=== PATIENT | male | born 1955 | race African-American/Black ===

== ENCOUNTER 2021-12-29 11:15 | Outpatient (REF) | payer MEDICARE, SELFPAY ==
--- NOTE | ~2021-12-29 | US_ITS ---
EXAMINATION: US COMPLETE ABDOMEN WITH LIVER ELASTOGRAPHY CLINICAL INFORMATION: Viral hepatitis without hepatic coma COMPARISON: None. TECHNIQUE: Real-time imaging of the abdominal viscera. Noninvasive ultrasound liver fibrosis assessment is performed using Carlota ElastPQ point quantification shear wave elastography (2D-SWE) with a C5-2 MHz transducer. Multiple elastography samples are obtained. FINDINGS: PANCREAS: The visualized pancreatic head and body are normal in appearance. The tail of the pancreas is obscured from visualization by the overlying bowel gas. ABDOMINAL AORTA: The proximal, middle, and distal aortic segments are normal in caliber. INFERIOR VENA CAVA: Visualized portions are normal. LIVER: Normal. The liver demonstrates normal size, contour and echogenicity. No focal lesion or intrahepatic biliary duct dilatation. The right lobe measures 13.1 cm in length. The left lobe measures 7.44 cm in length. Portal flow is hepatopedal. Shear wave liver elastography median stiffness is 1.53 m/s (reference: normal median stiffness is 1.3 m/s or less). IQR/median stiffness to assess sampling precision is 0.04 (reference: good quality data set is IQR/median stiffness of 0.15 or less). GALLBLADDER: Gallbladder wall thickness is 0.2 cm. There are echogenic calcifications in the gallbladder wall. The gallbladder is physiologically distended without evidence of stones, sludge, polyps, wall thickening or pericholecystic fluid. COMMON BILE DUCT: Normal in caliber measuring 0.3 cm in diameter. RIGHT KIDNEY: Normal. No hydronephrosis. No renal calculi or focal parenchymal lesions. The kidney measures 11.1 cm in maximum dimension. LEFT KIDNEY: There is an anechoic cyst midpole measuring 0.8 x 0.7 x 0.8 cm. No hydronephrosis. No renal calculi or focal parenchymal lesions. The kidney measures 10.9 cm in maximum dimension. SPLEEN: Normal. The spleen measures 10.5 cm in maximum dimension. FREE FLUID: None. US/US abdomen comp w elastography IMPRESSION: 1. Simple cyst left kidney midpole. 2. Nonspecific echogenic calcification along the gallbladder wall. 3. Liver elastography: Median liver stiffness measures 1.3 m/s suggestive of high probability normal REFERENCE: Society of Radiologists in Ultrasound Liver Stiffness Thresholds (2019): LIVER STIFFNESS THRESHOLDS: *Liver Stiffness equal or less than 1.3 m/s: High probability of being normal. *Liver Stiffness less than 1.7 m/s: In the absence of other known clinical signs, rules out compensated advanced chronic liver disease. *Liver Stiffness 1.7-2.1 m/s: Suggestive of compensated advanced chronic liver disease but need further test for confirmation. *Liver Stiffness over 2.1 m/s: Rules in compensated advanced chronic liver disease. *Liver Stiffness over 2.4 m/s: Suggestive of clinically significant portal hypertension. QUALITY OF DATA SET: *IQR/Median value equal or less than 0.15 implies a quality data set. *IQR/Median value over 0.15 implies a poor quality data set. SIGNIFICANT CHANGE FROM PRIOR EXAM: Significant change if liver stiffness measurement is 10% or greater from prior exam. OTHER CONSIDERATIONS: The stage of liver fibrosis may be overestimated in the setting of acute hepatitis, liver inflammation, elevated liver function tests, hepatic vascular congestion, obstructive cholestasis, non-fasting state, and infiltrative diseases such as amyloidosis and lymphoma. In some patients with NAFLD, the liver stiffness thresholds for compensated advanced chronic liver disease may be lower. In causes other than viral hepatitis and NAFLD, liver stiffness thresholds are not well established.
== END 2021-12-29 11:16 | disposition home or self-care (01) ==
LOC: HO.US 11:15
PROVIDERS: Visit Provider Internal Medicine
DX: B19.20 Unspecified viral hepatitis C without hepatic coma (principal)
CPT/HCPCS: 76705; 76981

== ENCOUNTER → 2022-08-16 11:14 | Outpatient (BNV) | payer MEDICARE, SELFPAY | PROVIDERS: PCP Internal Medicine; Visit Provider Internal Medicine | DX: D64.9 Anemia, unspecified (principal) | CPT/HCPCS: 99203; 99214; G2211 ==

== ENCOUNTER 2022-11-03 09:59 | Outpatient (REF) | payer MEDICARE, SELFPAY | END 2022-11-03 10:00 | disposition home or self-care (01) | LOC: HO.MDS 09:59 | PROVIDERS: Visit Provider Internal Medicine | DX: D50.9 Iron deficiency anemia, unspecified (principal) | CPT/HCPCS: 96365 ==

== ENCOUNTER 2022-11-10 09:53 | Outpatient (REF) | payer MEDICARE, SELFPAY | END 2022-11-10 09:54 | disposition home or self-care (01) | LOC: HO.MDS 09:53 | PROVIDERS: Visit Provider Internal Medicine | DX: D50.9 Iron deficiency anemia, unspecified (principal) | CPT/HCPCS: 96365; J1756 ==

== ENCOUNTER 2022-11-17 09:51 | Outpatient (REF) | payer MEDICARE, SELFPAY | END 2022-11-17 09:52 | disposition home or self-care (01) | LOC: HO.MDS 09:51 | PROVIDERS: Visit Provider Internal Medicine | DX: D50.9 Iron deficiency anemia, unspecified (principal) | CPT/HCPCS: 96365; J1756 ==

== ENCOUNTER 2022-11-24 09:49 | Outpatient (REF) | payer MEDICARE, SELFPAY | END 2022-11-24 09:50 | disposition home or self-care (01) | LOC: HO.MDS 09:49 | PROVIDERS: Visit Provider Internal Medicine | DX: D50.9 Iron deficiency anemia, unspecified (principal) | CPT/HCPCS: 96365; J1756 ==

== ENCOUNTER 2022-12-01 09:48 | Outpatient (REF) | payer MEDICARE, SELFPAY | END 2022-12-01 09:49 | disposition home or self-care (01) | LOC: HO.MDS 09:48 | PROVIDERS: Visit Provider Internal Medicine | DX: D50.9 Iron deficiency anemia, unspecified (principal) | CPT/HCPCS: 96365; J1756 ==

== ENCOUNTER 2024-06-14 07:56 | Outpatient (REF) | payer MEDICARE, SELFPAY ==
[2024-06-14 08:35] LABS: MANUAL DIFF FLAG NO
[2024-06-14 09:50] LABS: Basophils Percent Auto 0.5 % (0-2); Eosinophils Absolute Auto 0.2 X10*3/uL (0.0-0.4); Eosinophils Percent Auto 2.4 % (0-4); Hematocrit 29.3 % (42.0-52.0); Hemoglobin 9.4 g/dl (14.0-18.0); Imm Gran Abs Auto 0.03 X10*3/uL (0.00-0.03); Imm Gran Pct Auto 0.4 % (0.0-0.4); Lymphocytes Absolute Auto 1.7 X10*3/uL (1.2-4.9); Lymphocytes Percent Auto 20.4 % (20-40); Mean Corpuscular HGB Conc 32.1 g/dl (31.0-36.0); Mean Corpuscular Hemoglobin 30.1 pg (27.0-33.0); Mean Corpuscular Volume 93.9 fL (80.0-98.0); Mean Platelet Volume 10.7 fL (9.4-12.4); Monocytes Absolute Auto 0.7 X10*3/uL (0.1-1.2); Monocytes Percent Auto 8.6 % (2-11); Neutrophils Absolute Auto 5.7 x10*3/uL (2.0-8.3); Neutrophils Percent Auto 67.7 % (45-73); Platelet Count 386 X10*3/uL (160-400); Red Blood Count 3.12 X10*6/uL (4.60-5.80); Red Cell Distribution Width 15.7 % (11.0-16.0); White Blood Count 8.4 X10*3/uL (4.8-10.8)
[2024-06-14 10:19] LABS: Alanine Aminotransferase 11 U/L (0-40); Albumin Level 4.1 g/dL (3.5-5.0); Alkaline Phosphatase 109 U/L (39-117); Anion Gap 15 (12-20); Aspartate Amino Transferase 23 U/L (5-37); Bilirubin Total 0.2 mg/dL (0.0-1.0); Blood Urea Nitrogen 21 mg/dL (9-16); Calcium 9.4 mg/dL (8.4-10.2); Carbon Dioxide 25 mmol/L (22-29); Chloride 110 mmol/L (96-108); Cholesterol 85 mg/dL (<200); Estimated Glomerular Filt Rate 54; Glucose Random 102 mg/dL (60-115); HDL Cholesterol 23 mg/dL (>40); Iron 35 mcg/dL (45-160); LDL Cholesterol Calculated 53 mg/dL (<100); Percent Iron Saturation 13 % (15-50); Potassium 4.5 mmol/L (3.3-5.1); Sodium 145 mmol/L (135-145); Total Iron Binding Capacity 260 mcg/dL (228-428); Total Protein 6.8 g/dL (6.5-8.0); Triglycerides 45 mg/dL (<150); Unsaturated Iron Binding 225 ug/dL
[2024-06-14 10:33] LABS: PSA,Total (Free>4and<10) 5.46 ng/mL (0.00-4.00)
[2024-06-14 10:39] LABS: TSH reflex Free T4 1.81 uIU/mL (0.32-4.0)
[2024-06-14 10:45] LABS: Folate 7.9 ng/mL (> or = 4.0); Vitamin B12 257 pg/mL (200-900)
[2024-06-16 12:03] LABS: Alpha Fetoprotein 2.8 ng/mL (<6.1)
[2024-06-16 12:09] LABS: Free Prostate Spec Ag 1.8 ng/mL; Percent Free Prostate Spec Ag 32 % (calc) (>25); Prostate Specific Ag Total 5.6 ng/mL (< OR = 4.0)
== END 2024-06-14 07:57 | disposition home or self-care (01) ==
LOC: HO.LAB 07:56
PROVIDERS: PCP Internal Medicine; Visit Provider Internal Medicine
DX: E11.9 Type 2 diabetes mellitus without complications (principal); Z12.5 Encounter for screening for malignant neoplasm of prostate; B18.2 Chronic viral hepatitis C
CPT/HCPCS: 36415; 80053; 80061; 82105; 82607; 82746; 83540; 84153; 84154; 84443; 85025

== ENCOUNTER 2024-08-15 10:42 | Outpatient (AMB) | payer MEDICARE, SELFPAY ==
--- NOTE | 2024-08-15 07:52 | A.OFFVIS_ITS ---
Intake Visit Reasons: Current Smoker Allergies No Known Allergies Allergy (Verified 06/02/24 15:37) HPI HPI Current Smoker: Details: Initial visit for this 69yo smoker with a 27PYH. Patient started smoking at age 15 for 54 years at 1/2ppd. . Reports history marijuana use in past. Denies second hand smoke exposure. Denies exposure to chemicals or substances like asbestos. . Denies known family history of lung cancer. Denies personal history of cancers. Denies chest CT in last year. History of Right lung mass biopsy - inflammation- Dr. Gonzalez, [facility] - 11/15/2001. . Denies recent travel outside the [place]. Denies recent respiratory illness or recent hospitalization for respiratory issues. Reports testing positive for COVID. Admits receiving COVID Vaccine. . Denies fever, chills, new/worsening cough, hemoptysis, hoarseness or dysphagia. Denies significant chest pain, significant dyspnea or unintentional weight loss. Patient Lung Cancer Screening Questionnaire reviewed with patient by provider. . Shared Decision Making Completed. Patient meets criteria. Discussed in detail with patient, the risk vs benefit of LDCT screening. Patient consents to proceed with scan. Discussed smoking cessation. [facility] Medical History (Updated 08/12/24 @ 15:09 by Corie Carmona PA-C) Hepatitis C, chronic Hypertension Hyperlipidemia Diabetes GERD (gastroesophageal reflux disease) Anemia Nicotine dependence, cigarettes, uncomplicated Surgical History (Updated 08/15/24 @ 07:53 by Corie Carmona PA-C) History of bronchoscopy Social History (Updated 08/15/24 @ 10:51 by Corie Carmona PA-C) Household Members: Family Housing: Other Patient Tobacco Use Status: Current everyday Tobacco user Tobacco use type: Cigarette Years Smoked: (onset 15yo, 1/2ppd x 54yrs, 27pyh) service: No Current occupational status: employed and retired Assessment & Plan Assessment & Plan (1) Nicotine dependence, cigarettes, uncomplicated: Code(s): F17.210 - Nicotine dependence, cigarettes, uncomplicated Category: Medical Plan: - SDM visit completed today in office. - Patient meets criteria for LDCT for lung cancer screening purposes and is asymptomatic. - Smoking cessation counseling offered. Patients can always call [phone]. - Will arrange for a LDCT scan of the chest for screening purposes at [facility]. - Risks, benefits, and alternatives were discussed in detail and the patient agrees to proceed. - Risks discussed include but are not limited to: radiation exposure, anxiety during testing and while awaiting results, false negatives, false positives and possibility of additional intervention such as further imaging or surgical procedures for benign disease. - Benefits are obviously detection of lung cancer at an early stage which can lead to improved outcomes. - Discussed the importance of screening program compliance with adherence to yearly LDCT scan as scheduled - or sooner interval scans for personalized screening regimen. - Discussed follow up plan. Our office will send a letter discussing results and if needed set up phone call and office visit based on CT findings. - Patient educated on results categorization and the management decisions for suspicious findings potentially found on the screening LDCT scan. Any patient with a Lung RADS score of 3 or 4 will be reviewed by a multidisciplinary team at [facility] to form a plan of action in regards to scan findings. - If further work up is warranted for a suspicious lung finding this will be followed by the Lung Cancer Screening program in conjunction with the Thoracic Surgery Department at [facility]. - A copy of the office note and LDCT will be sent to the patient's PCP - as well as documentation on any associated further plans of care. - Incidental findings on LDCT are the PCP's responsibility. These findings are indicated with an S finding on the LDCT Assessment. A note discussing the findings will be sent to the PCP who is then responsible for further management. - All questions answered.? Plan The USPTF recommends men age 65-75 who have ever smoked have a one-time Abdominal Ultrasound screening for AAA. Reports having abd US at [facility] that is being followed. Reports scheduled for abdominal CT next week. He asked about upcoming appointment on 08/18 which is for Urology questioning if he needed to keep that appointment. Explained it is to further work up elevated PSA which can be elevate in a number of conditions including prostate cancer. He is encourage to follow up on this. Coding Level of Care Code Lung Cancer Screening [id number] Diagnoses Nicotine dependence, cigarettes, uncomplicated F17.210
== END 2024-08-15 13:14 | disposition home or self-care (01) ==
PROVIDERS: PCP Internal Medicine; Visit Provider Physician Assistant Medical
DX: F17.210 Nicotine dependence, cigarettes, uncomplicated (principal)
CPT/HCPCS: G0296

== ENCOUNTER 2024-08-15 11:03 | Outpatient (REF) | payer MEDICARE, SELFPAY ==
--- NOTE | ~2024-08-15 | CT_ITS ---
CLINICAL HISTORY: F17.210 - Nicotine dependence, cigarettes, uncomplicated Examination CT lung cancer screening History Screening examination performed for pulmonary nodules Technique Axial CT images of the chest using low-dose technique. Effective radiation dose total: 64.5 mGy-cm, CTDIvol 1.66 mGy. Referring provider counseled the patient on shared decision-making for LDCT screening. Additional counseling was provided on smoking cessation. Comparison: None Findings: Lungs: There is a cyst in the superior segment of the right lower lobe measuring 3.5 x 2.3 x 2.8 cm. There is irregular/nodular wall thickening of the cyst measuring up to 6 mm (series 7, image 79). Scarring at the lung apices with nodularity which measures up to 1.3 cm (series 4, image 10 4 bilateral nodules with a more nodular appearance on the left best seen on series 7, image 59). Paraseptal emphysema measures up to 3.3 cm. Mand-pk-eyeaoyrz centrilobular emphysema. Mild bronchial wall thickening Coronary artery calcifications: Moderate Other: None Limited upper abdomen: Atrophic spleen with a lobular contour Impression: LungRADS 4A - Suspicious: Follow-up low dose Chest CT recommended in 3 months or consider PET/CT. ##L4A# Category 1: Normal; continue annual screening Category 2: Benign appearance or behavior, continue annual screening Category 3: Probably benign, [address] recommended Category 4A: Suspicious, [address] recommended; may consider PET/CT Category 4B: Suspicious, Additional diagnostics and/or tissue sampling recommended Category 4X: Suspicious, Additional diagnostics and/or tissue sampling recommended Category 0: Recalls (incomplete screen due to Incomplete coverage, Noise, Respiratory motion, Expiration, Obscured by acute abnormality) This document has been electronically signed by: Yolis Eid MD on 08/15/2024 17:22:37
== END 2024-08-15 11:04 | disposition home or self-care (01) ==
LOC: HO.CT 11:03
PROVIDERS: PCP Internal Medicine; Visit Provider Physician Assistant Medical
DX: Z12.2 Encounter for screening for malignant neoplasm of respiratory organs (principal); F17.210 Nicotine dependence, cigarettes, uncomplicated
CPT/HCPCS: 71271; G0296

== ENCOUNTER → 2024-08-15 11:05 | Outpatient (BNV) | payer MEDICARE, SELFPAY | PROVIDERS: PCP Internal Medicine; Visit Provider Radiology Diagnostic Radiology | DX: F17.210 Nicotine dependence, cigarettes, uncomplicated (principal) | CPT/HCPCS: 71271 ==

== ENCOUNTER 2024-12-15 10:51 | Outpatient (REF) | payer MEDICARE, SELFPAY ==
--- OUTSIDE RECORDS SUMMARY | 2024-12-15 11:36 | XMS_ITS | Encounter Summary ---
Author Organization [employer] Address [address] [place] [address] Care Team Providers Care Propulsion Machinery Service Engineer Name Role Phone Enrike Coronado MD Primary Care Prov ider Reason for Visit * Reason Onset Date Comments CT scan order 09/29/2024 Encounter Details Date Type Department Care Team (Late st Contact Info) Description 09/29/2024 Telephone [facility] [address] [place] [address] Enrike Coronado MD [address] [place] [address] CT scan order Social History Tobacco Use Types Packs/Day Years Used Date Smoking Tobacco: Every Day Cigarettes Depression Answer Date Recorded Patient Health Questionnaire-9 Score 2 05/29/2024 Patient Health Questionnaire-9 Score 2 05/29/2024 Last PHQ-9: Questionnaire Data Not on file 1 Housing Stability Answer Date Recorded What is your housing situation today? I have artis connolly 05/22/[address] you li ve. Do you have problems with any of the following? None of the above 05/22/2024 Food Insecurity Answer Date Recorded Within the past 12 months, y ou worried that your food would run out before you got money to buy more: Never True 05/22/2024 Within the past 12 months,th e food you bought just didn't last and you didn't have enough money to get more: Never True Transportation Answer Date Recorded In the past 12 months, has l ack of transportation kept you from medical appts, meetings, work or from getting things needed for daily living? No 05/22/2024 Utilities Answer Date Recorded In the past 12 months, has t he electric, gas, oil or water company threatened to shut off services in your home? No 05/22/2024 Depression Answer Date Recorded Patient Health Questionnaire-2 Score 0 05/29/2024 Internet Access Answer Date Recorded Internet Access Q1 Yes 05/22/2024 Internet Access Q2 Not on file 05/22/2024 Sex and Gender Information Value Date Recorded Sex Assigned at Male 06/05/2022 10:36 AM EDT Legal Sex Male 10:36 AM EDT Gender Identity Male 06/05/2022 10:36 AM EDT Sexual Orientation Choose not to disclose 2021 10:36 AM EDT documented as of this encounter Miscellaneous Notes * Telephone Encounter - Benedicto Jones - 09/30/2024 11:28 AM EST TC from [facility] with [facility] reports receiving order for Ct scan of abdomen with/ and w out contrast . Requesting a new order to state Ct of Abdomen with contrast ( only ) * Telephone Encounter - Katya Pradhan - 09/29/2024 11:43 AM EST Tc from [facility] with [facility] informing referral that was sent over for imaging has to say CT abdomen w contrast only documented in this encounter Plan of Treatment Upcoming Encounters Date Type Department Care Team (Late st Contact Info) Description 01/08/2025 10:30 AM EDT Telemedicine [facility] [address] [place] [address] Enrike Coronado MD [address] [place] [address] documented as of this encounter Visit Diagnoses Not on filedocumented in this encounter Additional Health Concerns Assessment Noted Time PHQ-9 Depression Total Score: 2 05/29/20 11:39 AM EDT documented as of this encounter Care Teams Propulsion Machinery Service Engineer Relationship Specialty Start Date End Date Enrike Coronado MD [address] [place] [id number] PCP - General Internal Medicine 09/23/19 documented as of this encounter
--- OUTSIDE RECORDS SUMMARY | 2024-12-15 11:36 | XMS_ITS | Clinical Summary ---
Author Organization [facility] Address [address] [place] [address] Phone Care Team Providers Care Relocation Director Name Role Phone Enrike Coronado Primary Care Provide r Social History Tobacco Use Types Packs/Day Years Used Date Smoking Tobacco: Every Day Cigarettes Smokeless Tobacco: Never Sex and Gender Information Value Date Recorded Sex Assigned at Not on file Legal Sex Male 7:48 PM EST Gender Identity Not on file Sexual Orientation Not on file Obstetrics History Plan of Treatment Health Maintenance Due Date Last Done Comments Diabetes: Annual Foot Exam 1964 Diabetes: Annual Retina Eye Exam 1964 DTaP,Tdap,and Td Vaccines (1 - Tdap) 1973 Pneumococcal Vaccine: 50+ Years (1 of 2 - PCV) 1973 Zoster Vaccines (1 of 2) 2004 RSV Immunization Adult Patients (1 - Risk 60-74 years 1-dose series) 2014 Abdominal Aortic Aneurysm (AAA) Screen 07/16/2022 Colorectal Cancer Screening: Colonoscopy 07/16/2022 Falls Risk Assessment 07/16/2022 Hepatitis C Screening 07/16/2022 Medicare Annual Wellness Visit 07/16/2022 Social Influencers of Health Screening 07/16/2022 Hepatitis A Vaccines (2 of 2 - Risk 2-dose series) 03/14/2023 09/14/2022 Hepatitis B Vaccines (3 of 3 - Risk 3-dose series) 03/14/2023 10/12/2022, 09/14/2022 COVID-19 Vaccine (2 - 2023-2 5 season) 2024 08/26/2021 Diabetes: Annual Urine Albumin-Creatinine Ratio (uACR) 07/23/2024 Diabetes: Blood Sugar Contro l Test (HGBA1C) 11/28/2024 05/30/2024 Influenza Vaccine (Season Ended) 2025 Depression Screening 05/29/2025 05/29/2024 Diabetes: Annual GFR (Glomerular Filtration Rate) 06/14/2025 06/14/2024 Hypertension/CHF/CAD Annual BMP Blood Test 06/14/2025 06/14/2024 Cholesterol Screening (Lipid Panel) 06/14/2029 06/14/2024 HIB Vaccines Aged Out No longer eligi ble based on patient's age to complete this topic HPV Vaccines Aged Out No longer eligi ble based on patient's age to complete this topic IPV Vaccines Aged Out No longer eligi ble based on patient's age to complete this topic MMR Vaccines Aged Out No longer eligi ble based on patient's age to complete this topic Meningococcal ACWY Vaccine Aged Out N o longer eligible based on patient's age to complete this topic Meningococcal B Vaccine Aged Out No l onger eligible based on patient's age to complete this topic RSV Immunization Patients Under 20 months Aged Out No longer eligible b ased on patient's age to complete this topic Varicella Vaccines Aged Out No longer eligible based on patient's age to complete this topic Insurance [place] [id number] Care Teams Relocation Director Relationship Specialty Start Date End Date Enrike Coronado [address] [place], [place] PCP - General Internal Medicine 11/07/19
--- OUTSIDE RECORDS SUMMARY | 2024-12-15 11:36 | XMS_ITS | Encounter Summary ---
Author Organization [employer] Address [address] [place] [address] Care Team Providers Care Flower Buncher Or Picker Name Role Phone Enrike Coronado MD Primary Care Prov ider Encounter Details Date Type Department Care Team (Late st Contact Info) Description 12/09/2024 Orders Only [facility] [address] [place] [address] Enrike Coronado MD [address] [place] [address] Social History Tobacco Use Types Packs/Day Years [...] AM EDT documented as of this encounter Plan of Treatment Upcoming Encounters Date Type Department Care Team (Late st Contact Info) Description 01/08/2025 10:30 AM EDT Telemedicine [facility] [address] [place] [address] Enrike Coronado MD [address] [place] [address] documented as of this encounter Visit Diagnoses Not on filedocumented in this encounter Additional Health Concerns Assessment Noted Time PHQ-9 Depression Total Score: 2 05/29/20 24 11:39 AM EDT documented as of this encounter Care Teams Flower Buncher Or Picker Relationship Specialty Start Date End Date Enrike Coronado MD [address] [place] [address] PCP - General Internal Medicine 09/23/19 documented as of this encounter
--- OUTSIDE RECORDS SUMMARY | 2024-12-15 11:36 | XMS_ITS | Encounter Summary ---
Author Organization [employer] Address [address] [place] [address] Care Team Providers Care Tapper Shank Name Role Phone Enrike Coronado MD Primary Care Prov ider Encounter Details Date Type Department Care Team ([facility] Contact Info) Description 07/26/2022 Orders Only [facility] [address] [place] [address] Enrike Coronado MD [address] [place] [address] Iron deficiency (Primary Dx) Social History Tobacco Use Types Packs/Day Years Used Date Smoking Tobacco: Never Assessed Sex and Gender Information Value Date Recorded Sex Assigned at Male 06/05/2022 10:36 AM EDT Legal Sex Male 10:36 AM EDT Gender Identity Male 06/05/2022 10:36 AM EDT Sexual Orientation Choose not to disclose 2021 10:36 AM EDT documented as of this encounter Plan of Treatment Upcoming Encounters Date Type Department Care Team (Late Contact Info) Description 01/08/2025 10:30 AM EDT Telemedicine [facility] [address] [place] [address] Enrike Coronado MD [address] [place] [address] documented as of this encounter Visit Diagnoses Diagnosis Iron deficiency- Primary Disorders of iron metabolism documented in this encounter Care Teams Tapper Shank Relationship Specialty Start Date End Date Enrike Coronado MD [address] [place] [id number] PCP - General Internal Medicine 09/23/19 documented as of this encounter
--- OUTSIDE RECORDS SUMMARY | 2024-12-15 11:36 | XMS_ITS | Encounter Summary ---
Author Organization [employer] Address [address] [place] [address] Care Team Providers Care Wastewater Project Engineer Name Role Phone Enrike Coronado MD Primary Care Prov ider Reason for Visit * Reason Onset Date Comments Request For Order(s) 08/27/2024 Encounter Details Date Type Department Care Team ([facility] st Contact Info) Description 08/27/2024 Telephone [facility] [address] [place] [address] Enrike Coronado MD [address] [place] [address] Request For Order(s) Social History Tobacco Use Types Packs/Day Years [...] encounter Miscellaneous Notes * Telephone Encounter - Katya Pradhan - 08/27/2024 8:25 AM EST Tc from Chris with [facility] requesting a new order for - CT Abdomen with and without contrastas is a liver protocol - Chris states past order was with and is requested with and without.Pt will be going in about to hours from now 8:27am [facility] -Chris- [phone] documented in this encounter Plan of Treatment Upcoming Encounters Date Type Department Care Team (Late st Contact Info) Description 01/08/2025 10:30 AM EDT Telemedicine [facility] [address] [place] [address] Enrike Coronado MD [address] [place] [address] documented as of this encounter Visit Diagnoses Not on filedocumented in this encounter Additional Health Concerns Assessment Noted Time PHQ-9 Depression Total Score: 2 05/29/20 24 11:39 AM EDT documented as of this encounter Care Teams Wastewater Project Engineer Relationship Specialty Start Date End Date Enrike Coronado MD [address] [place] [address] PCP - General Internal Medicine 09/23/19 documented as of this encounter
--- OUTSIDE RECORDS SUMMARY | 2024-12-15 11:36 | XMS_ITS | Clinical Summary ---
Author Organization [employer] Address [address] [facility] 7t [place] [address] Care Team Providers Care Assignment Desk Assistant Name Role Phone Enrike Coronado MD Primary Care Prov ider Allergies No known active allergies Medications Aspirin Low Dose 81 MG EC tablet Take 81 mg by mouth in the morning. 05/16/2022 Active Blood Glucose Monitoring Suppl (SHADOTouch Verio Reflect) w/Device kit USE TO CHECK BLOOD SUGAR 3 TIMES A DAY DIRECTED. 09/20/2021 Active Blood Pressure Monitoring (Omron 3 Series BP Monitor) device Check blood pressure on arm as directed EVERY DAY 11/23/2021 Active Glecaprevir-Pib rentasvir (Mavyret) 100-40 MG tablet take 3 tablet by oral route every day for 8 weeks 02/15/2022 Active OneTouch Verio test strip USE TO CHECK BLOOD SUGAR THREE TIMES DAILY DIRECTED. 11/22/2021 Active Lancets (SHADOTouch Delica Plus [id number]) misc USE TO CHECK BLOOD SUGAR 3 TIMES A DAY DIRECTED. 11/22/2021 Active omeprazole (PriLOSEC) [address] capsule Take 20 mg by mouth in the morning. 05/29/2022 Active pneumococcal conjugate (Prevnar 13) vaccine Inject 0.5 mL into the shoulder, thigh, or buttocks. 10/18/2021 Active zoster vaccine-recombi nant adjuvanted (Shingrix) 50 MCG/0.5ML vaccine Inject 0.5 mL into the shoulder, thigh, or buttocks. 10/18/2021 Active ferrous gluconate (Fergon) 324 (38 Fe) MG tablet Take 1 tablet (324 mg) by mouth with breakfast. 90 tablet 3 10/08/2024 10/09/19 26 Active atorvastatin (Lipitor) 40 MG tablet Take 1 tablet (40 mg) by mouth Once per day. 90 tablet 3 10/08/2024 Active lisinopril-hydr oCHLOROthiazide 20-12.5 MG tablet Take 1 tablet by mouth Once per day. 90 tablet 3 10/08/2024 10/09/19 26 Active Active Problems Problem Noted Date Diagnosed Date Elevated PSA 10/08/2024 Assessment & Plan (10/08/2024 12:25 PM EST): No LUTS, he missed appointment with urology, encouraged to rescheduled, phone number was provided Lung nodule 10/08/2024 Assessment & Plan (10/08/2024 12:25 PM EST): Followed by pneumology, he will undergo a new ct scan in 3 months Liver lesion 10/08/2024 Assessment & Plan (12/08/2024 11:15 AM EDT): Ct scan ordered pending appointment, new labs sent Assessment & Plan (10/08/2024 12:27 PM EST): 3 liver lesion uncharacterized seen on ct scan, will repeat study in 3 months 12/03/24. Screening for lung cancer 05/29/2024 Assessment & Plan (05/29/2024 11:20 PM EDT): >30 pack year hx, will refer for lung cancer screening Prostate cancer screening 05/29/2024 Assessment & Plan (05/29/2024 11:20 PM EDT): Will order PSA Primary hypertension 12/04/2022 Assessment & Plan (12/08/2024 11:14 AM EDT): Controlled, continue low sodium intake, keep bp log, target <140/90 Assessment & Plan (10/08/2024 12:24 PM EST): Controlled, continue low sodium diet and exercise as tolerated, keep bp log, target <140/90 Assessment & Plan (05/29/2024 11:17 PM EDT): Controlled with current therapy, keep bp log, target <140/90, new labs will be ordered for guidance, follow up in 3 months Assessment & Plan (12/04/2022 11:02 AM EDT): Controlled, reinforced low sodium diet and exercise as tolerated, will place new labs orders, follow up in 3 months Iron deficiency anemia 12/04/2022 Assessment & Plan (12/08/2024 11:15 AM EDT): New labs will be ordered he remains asymptomatic Assessment & Plan (12/04/2022 11:03 AM EDT): On oral iron replacement, patient also underwent 5 iron infssions, will order new labs, denied rectal bleeding, Hepatitis C without hepatic coma 09/07/2022 Assessment & Plan (05/29/2024 11:18 PM EDT): Ultrasound will be ordered Hepatitis C virus infection cured after antiviral drug therapy 09/07/2022 Acute cough 07/27/2022 Assessment & Plan (07/27/2022 12:49 PM EST): Patient symptoms started 2 days ago, he tested positive for covid. Current symptoms are chills, cough and congestion. Paxlovid offered risk v benefits were discussed, told to maintain well hydrated and in case of worsening symptoms to visit er. COVID 07/27/2022 Congestion of nasal sinus 07/27/2022 Resolved Problems Problem Noted Date Diagnosed Date Resolved Date Type 2 diabetes mellitus wit hout complication, without long-term current use of insulin 05/29/2024 10/08/2024 Assessment & Plan (05/29/2024 11:18 PM EDT): Has been off treatment, today A1c was <6, continue diet and exercise as tolerated Encounters Date Type Department Care Team Description 12/09/2024 Orders Only [facility] MEDICINE [address] [place] [address] Enrike Coronado MD 12/08/2024 10:30 AM EDT Telemedicine [facility] MED & PEDS [address] [place] [address] Enrike Coronado MD Iron deficiency anemia secondary to inadequate dietary iron intake (Primary Dx); Primary hypertension; Liver lesion 12/08/2024 Travel 11/06/2024 Telephone [facility] [address] [place] [address] ABDOMEN ORDER 10/14/2024 Telephone [facility] Information Management [address] [place] [address] [id number] ORDER 10/08/2024 11:15 AM EST Telemedicine [facility] MED & PEDS [address] [place] [address] Enrike Coronado MD Primary hypertension (Primary Dx); Dietary counseling; Exercise counseling; Type 2 diabetes mellitus without complication, without long-term current use of insulin (CMS/HCC); Chronic hepatitis C without hepatic coma (CMS/HCC); Elevated PSA; Lung nodule; Liver lesion 10/08/2024 Travel 10/07/2024 Telephone [facility] MED & PEDS [address] [place] [address] Enrike Coronado MD chart prep 09/29/2024 Telephone [facility] MEDICINE [address] [place] [address] [phone] scan order from Last 3 Months Immunizations Name Administration Dates Next Due Hep A, Adult 09/14/2022 03/14/2023 Hep B, adult 10/12/2022 HepB-CpG 09/14/2022 10/12/2022 Social History Tobacco Use Types Packs/Day Years Used Date Smoking Tobacco: Every Day Cigarettes Tobacco Cessation:Ready to Q uit: Not Asked; Counseling Given: Not Answered Depression Answer Date Recorded Patient Health Questionnaire-9 [...] not to disclose 2021 10:36 AM EDT Last Filed Vital Signs Vital Sign Reading Time Taken Comments Blood Pressure 130/52 12/08/2024 10:33 AM EDT Pulse 74 12/08/2024 10:33 AM EDT Temperature 36.7 ??C (98 ??F) 05/29/2024 11:02 AM EDT Respiratory Rate 22 05/29/2024 11:02 AM EDT Oxygen Saturation 98% 05/29/2024 11:02 AM EDT Inhaled Oxygen Concentration - - Weight 84.9 kg (187 lb 2 oz) 05/29/2024 11:02 AM EDT Height 180.3 cm (5' 11 ) 05/29/2024 11:02 AM EDT Body Mass Index 26.1 05/29/2024 11:02 AM EDT Plan of Treatment Upcoming Encounters Date Type Department Care Team (Late st Contact Info) Description 01/08/2025 10:30 AM EDT Telemedicine [facility] MED & PEDS [address] [place] [address] Enrike Coronado MD [address] [place] [address] Health Maintenance Due Date Last Done Comments CT Colonography 1954 Colonoscopy 1954 Colorectal Cancer Screening 1954 FIT DNA/Cologuard 1954 FIT 1954 FOBT 1954 Sigmoidoscopy 1954 Diabetes: Foot Exam 1964 Eye Exam 1964 DTaP/Tdap/Td Vaccines (1 - Tdap) 1973 Pneumococcal Vaccine: 50+ Years (1 of 2 - PCV) 1973 Zoster Vaccines (1 of 2) 2004 RSV Patients and Patients Aged 60 years or older (1 - Risk 60-74 years 1-dose series) 2014 Diabetes: Urine Protein Screening 11/23/2022 11/23/2021 Hepatitis A Vaccines (2 of 2 - Risk 2-dose series) 03/14/2023 09/14/2022 Hepatitis B Vaccines (3 of 3 - Risk 3-dose series) 03/14/2023 10/12/2022, 09/14/2022, 09/14/2022 COVID-19 Vaccine ( season) 2024 08/26/2021, 10/12/2020, 09/23/2020 Influenza Vaccine (#1) 2024 Diabetes: Hemoglobin A1C 11/28/202405/30/2 024, 04/12/2022, 11/23/2021, Additional history exists Alcohol/Substance Use Screening 05/29/2025 05/29/2024 Depression Screening 05/29/2025 05/29/2024, 05/29/20 SDOH Screening 05/29/2025 05/29/2024 Tobacco Screening 05/29/2025 05/29/2024 Lipid Panel 06/14/2025 06/14/2024, 0508/2022, 07/03/2022, Additional history exists HIB Vaccines Aged Out No longer eligi ble based on patient's age to complete this topic HPV Vaccines Aged Out No longer eligi ble based on patient's age to complete this topic IPV Vaccines Aged Out No longer eligi ble based on patient's age to complete this topic Meningococcal Vaccine Aged Out No braeden wei eligible based on patient's age to complete this topic RSV under 20 months Aged Out No longe r eligible based on patient's age to complete this topic Rotavirus Vaccines Aged Out No longer eligible based on patient's age to complete this topic Procedures Procedure Name Priority Date/Time Associated Diagnosis Comments LIPID PANEL, STANDARD Routine 06/14/2024 8:33 AM EST Type 2 diabetes mellitus without complication, without long-term current use of insulin ([facility]) POCT GLYCATED HEMOGLOBIN, TOTAL Routine 05/30/2024 10:41 AM EDT Type 2 diabetes mellitus without complication, without long-term current use of insulin ([facility]) ALBUMIN, RANDOM URINE W/CREATININE Routine 11/23/2021 10:00 AM EDT from Last 3 Months or Most Recently Relevant to Health Maintenance Results * (ABNORMAL) Lipid Panel, Standard (06/14/2024 8:33 AM EST) Triglycerides 45 <150 mg/dL [facility] Comment:Desirable Triglyceri de: less than 150 mg/dLBorderline High Triglyceride 150-199 mg/dLHigh Triglyceride: 200-499 mg/dLVery High Triglyceride: greater than or equal to 5OO mg/dL Cholesterol 85 <200 mg/dL [facility] Comment:Desirable Cholestero l: less than 200 mg/dLBorderline High Cholesterol: 200-239 mg/dLHigh Cholesterol: greater than 239 mg/dL LDL Cholesterol Calculated 53 <100 mg/dL [facility] Comment:Desirable LDL: less than 100 mg/dLNear Optimal/Above Optimal LDL: 110- 129 mg/dLBorderline High LDL: 130-159 mg/dLHigh LDL: 160-189 mg/dLVery High LDL: greater than or equal to 190 mg/dL HDL Cholesterol 23(L) >40 mg/dL [facility] Comment:Desirable HDL: great er than 40 mg/dL Note: This HDL assay may give artificially low results in patients with liver disease. Blood Venous blood specimen / Unknown 06/14/2024 8:33 AM EST 06/14/2024 8:33 AM EST Enrike Peguero MD LAB BLOOD ORDERABL ES Final Result [facility] [address] [place] [phone] * POCT HGB A1C (05/30/2024 10:41 AM EDT) Hemoglobin A1C 5.1 4.0 - 6.0 % QC Media Lot # [id number] Lot# Expiration Date Blood 05/30/2024 10:4 1 AM EDT Enrike Peguero MD POINT OF CARE TEST ENTER/EDIT ORDERABLES Final Result * ALBUMIN, RANDOM URINE W/CREATININE (11/23/2021 10:00 AM EDT) Microalbumin Urine 0.3 See Note: mg/dL [facility] Comment: Reference Range: ?? Reference Range Not established Microalb/Creat Ratio 3 <30 mcg/mg creat [facility] Comment: ?? The ADA defines abnormalities in albumin excretion as follows: ?? Albuminuria Category ?Result (mcg/mg creatinine) ?? Normal to Mildly increased ?? <30 Moderately increased ? 30-299 ?? Severely increased ? > OR = 300 ?? The ADA recommends that at least two of three specimens collected within a 3-6 month period be abnormal before considering a patient to be within a diagnostic category. Creatinine, Urine 112 20 - 320 mg/dL [facility] 11/23/2021 10:0 0 AM EDT Enrike Peguero MD LAB URINE ORDERABL ES Final Result [facility] [address] from Last 3 Months or Most Recently Relevant to Health Maintenance Insurance [id number] MEDICARE REPLACEMENT Care Teams Assignment Desk Assistant Relationship Specialty Start Date End Date Enrike Coronado MD [address] [place] [phone] PCP - General Internal Medicine 09/23/19
--- OUTSIDE RECORDS SUMMARY | 2024-12-15 11:36 | XMS_ITS | Encounter Summary ---
Author Organization [employer] Address [address] [facility] [address] [place] [address] Care Team Providers Care Rock Climbing Instructor Name Role Phone Enrike Coronado MD Primary Care Prov ider Reason for Visit * Reason Onset Date Comments Med Refill 11/21/2022 Encounter Details Date Type Department Care Team (Late st Contact Info) Description 11/21/2022 Telephone [facility] MED & PEDS [address] [place] [address] nErike Coronado MD [address] [place] [address] Med Refill Social History Tobacco Use Types Packs/Day Years Used Date Smoking Tobacco: Every Day Cigarettes Sex and Gender Information Value Date Recorded Sex Assigned at Male 06/05/2022 10:36 AM EDT Legal Sex Male 10:36 AM EDT Gender Identity Male 06/05/2022 10:36 AM EDT Sexual Orientation Choose not to disclose 2021 10:36 AM EDT documented as of this encounter Miscellaneous Notes * Telephone Encounter - Susy Epperson - 11/21/2022 11:25 AM EDT Tc from pt requesting med refill on lisinopril-hydroCHLOROthiazide 20-12.5 MG tablet Please sent to [id number] - [place], [place] - [address] documented in this encounter Plan of Treatment Upcoming Encounters Date Type Department Care Team (Late st Contact Info) Description 01/08/2025 10:30 AM EDT Telemedicine [facility] MED & PEDS [address] [place] [address] Enrike Coronado MD [address] [place] [address] documented as of this encounter Visit Diagnoses Not on filedocumented in this encounter Care Teams Rock Climbing Instructor Relationship Specialty Start Date End Date Enrike Coronado MD [address] [place] [address] PCP - General Internal Medicine 09/23/19 documented as of this encounter
[2024-12-15 14:18] LABS: MANUAL DIFF FLAG NO
[2024-12-15 14:28] LABS: Basophils Percent Auto 0.5 % (0-2); Eosinophils Absolute Auto 0.2 X10*3/uL (0.0-0.4); Eosinophils Percent Auto 2.4 % (0-4); Hematocrit 30.1 % (42.0-52.0); Hemoglobin 9.5 g/dl (14.0-18.0); Imm Gran Abs Auto 0.02 X10*3/uL (0.00-0.03); Imm Gran Pct Auto 0.2 % (0.0-0.4); Lymphocytes Percent Auto 24.5 % (20-40); Mean Corpuscular HGB Conc 31.6 g/dl (31.0-36.0); Mean Corpuscular Hemoglobin 28.6 pg (27.0-33.0); Mean Corpuscular Volume 90.7 fL (80.0-98.0); Mean Platelet Volume 11.3 fL (9.4-12.4); Monocytes Absolute Auto 0.8 X10*3/uL (0.1-1.2); Monocytes Percent Auto 10.5 % (2-11); Neutrophils Percent Auto 61.9 % (45-73); Platelet Count 352 X10*3/uL (160-400); Red Blood Count 3.32 X10*6/uL (4.60-5.80); Red Cell Distribution Width 16.6 % (11.0-16.0)
[2024-12-15 14:40] LABS: Estimated Average Glucose 94 mg/dL; Hemoglobin A1C 77.0983 umol/L; Hemoglobin A1c % 4.9 % (<6.0); Total Hemoglobin (HGBA1C) 2550.0436 umol/L
[2024-12-15 14:50] LABS: Alanine Aminotransferase 9 U/L (0-40); Albumin Level 3.9 g/dL (3.5-5.0); Anion Gap 11 (12-20); Aspartate Amino Transferase 28 U/L (5-37); Bilirubin Total 0.3 mg/dL (0.0-1.0); Blood Urea Nitrogen 17 mg/dL (9-16); Carbon Dioxide 26 mmol/L (22-29); Chloride 105 mmol/L (96-108); Cholesterol 85 mg/dL (<200); Estimated Glomerular Filt Rate > 60; Glucose Random 75 mg/dL (60-115); HDL Cholesterol 21 mg/dL (>40); Iron 21 mcg/dL (45-160); LDL Cholesterol Calculated 51 mg/dL (<100); Percent Iron Saturation 8 % (15-50); Potassium 4.1 mmol/L (3.3-5.1); Sodium 138 mmol/L (135-145); Total Iron Binding Capacity 273 mcg/dL (228-428); Total Protein 6.6 g/dL (6.5-8.0); Triglycerides 66 mg/dL (<150); Unsaturated Iron Binding 252 ug/dL
[2024-12-15 15:17] LABS: Alkaline Phosphatase 104 U/L (39-117)
== END 2024-12-15 10:52 | disposition home or self-care (01) ==
LOC: HO.CHCLDS 10:51
PROVIDERS: Visit Provider Internal Medicine
DX: D50.8 Other iron deficiency anemias (principal); I10 Essential (primary) hypertension; Z13.1 Encounter for screening for diabetes mellitus
CPT/HCPCS: 36415; 80053; 80061; 83036; 83540; 85025

== ENCOUNTER 2025-01-29 09:06 | Outpatient (REF) | payer MEDICARE, SELFPAY ==
--- NOTE | ~2025-01-29 | CT_ITS ---
CLINICAL HISTORY: F17.210 - Nicotine dependence, cigarettes, uncomplicated --- Additional Notes or Special Instructions: RLL cyst measuring 3.5 x 2.[address] lung cancer screening (LDCT) Comparison: None provided Technique: Axial CT images of the chest using low-dose technique. Referring provider counseled the patient on shared decision-making for LDCT screening. Additional counseling was provided on smoking cessation. Effective radiation dose total: DLP 56.8 mGycm, CTDIvol 1.5 mGy. Findings: Lung: No evidence of pneumonia or edema. Mild apical predominant emphysema. Nodular biapical pulmonary opacities are present as before, largest of which is in the left medial apex, currently measuring 17 mm on image 21 (previously measuring 13 mm ). No change in the cystic focus within the superior segment right lower lobe with mural nodularity. Coronary artery calcifications: Moderate Limited upper abdomen: Unremarkable Other: None Impression: 1. Coronary artery disease. 2. LungRADS 4B - Suspicious: PET/CT, and/or tissue sampling recommended depending on the probability of malignancy and comorbidities. ##L4B## Category 1: Normal; continue annual screening Category 2: Benign appearance or behavior, continue annual screening Category 3: Probably benign, [address] recommended Category 4A: Suspicious, [address] recommended; may consider PET/CT Category 4B: Suspicious, Additional diagnostics and/or tissue sampling recommended Category 4X: Suspicious, Additional diagnostics and/or tissue sampling recommended Category 0: Recalls (incomplete screen due to Incomplete coverage, Noise, Respiratory motion, Expiration, Obscured by acute abnormality) This document has been electronically signed by: Pam Meza MD on 01/29/2025 17:48:23
--- OUTSIDE RECORDS SUMMARY | 2025-01-29 09:51 | XMS_ITS | Encounter Summary ---
Author Organization [employer] Address [address] [facility] [address] [place] [address] Care Team Providers Care Bronc Breaker Name Role Phone Enrike Coronado MD Primary Care Prov ider Reason for Visit * Reason Onset Date Comments CT scan order 09/29/2024 Encounter Details Date Type Department Care Team (Late st Contact Info) Description 09/29/2024 Telephone [facility] MEDICINE [address] [place] [address] Enrike Coronado MD [address] [place] [phone] scan order Social History Tobacco Use [...] - 09/29/2024 11:43 AM EST Tc from [facility] with [facility] informing referral that was sent over for imaging has to say CT abdomen w contrast only documented in this encounter Plan of Treatment Not on file documented as of this encounter Visit Diagnoses Not on filedocumented in this encounter Additional Health Concerns Assessment Noted Time PHQ-9 Depression Total Score: 2 05/29/20 24 11:39 AM EDT documented as of this encounter Care Teams Bronc Breaker Relationship Specialty Start Date End Date Enrike Coronado MD [address] [place] [address] PCP - General Internal Medicine 09/23/19 documented as of this encounter
== END 2025-01-29 09:07 | disposition home or self-care (01) ==
LOC: HO.CT 09:06
PROVIDERS: PCP Internal Medicine; Visit Provider Physician Assistant Medical
DX: Z12.2 Encounter for screening for malignant neoplasm of respiratory organs (principal); F17.210 Nicotine dependence, cigarettes, uncomplicated; J98.4 Other disorders of lung
CPT/HCPCS: 71250

== ENCOUNTER → 2025-01-29 09:14 | Outpatient (BNV) | payer MEDICARE, SELFPAY | PROVIDERS: PCP Internal Medicine; Visit Provider Radiology Diagnostic Radiology | DX: R91.8 Other nonspecific abnormal finding of lung field (principal) | CPT/HCPCS: 71250 ==

== ENCOUNTER 2025-03-20 14:11 | Outpatient (AMB) | payer MEDICARE, SELFPAY ==
[2025-03-20 14:13] VITALS: BP 102/64; PULSE 91; O2SAT 98; BMI 25.4
--- NOTE | 2025-03-20 14:13 | A.OFFVIS_ITS ---
Vital Signs 03/20/25 14:13 Height 5 ft 11 in Weight 182 lb BMI 25.4 BP 102/64 Blood Pressure Location Rt brachial Position Sitting Pulse 91 Pulse Source Pulse Oximeter Pulse Oximetry (%) 98 Oxygen Delivery Method Room Air Intake Visit Reasons: LDCT follow up Allergies No Known Allergies Allergy (Verified 06/02/24 15:37) HPI HPI LDCT follow up: Details: 69-year-old gentleman, active 30+ pack-year smoker referred from lung cancer screening program for concern of possible early pancoast tumor on screening CT chest. Patient does complain of intermittent dyspnea on exertion. He is not currently using a bronchodilator therapy. His employed with no exposure to industrial dusts. Patient denies family history of lung disease. [facility] Medical History (Updated 02/13/25 @ 11:31 by Desirae oJhnson MD) Hepatitis C, chronic Hypertension Hyperlipidemia Diabetes GERD (gastroesophageal reflux disease) Anemia Nicotine dependence, cigarettes, uncomplicated Surgical History History of bronchoscopy Social History (Updated 03/20/25 @ 14:19 by Becka Mcnulty Britney) Household Members: Family Housing: Other Patient Tobacco Use Status: Current everyday Tobacco user Tobacco use type: Cigarette Cigarettes Per Day: 10 Years Smoked: (onset 15yo, 1/2ppd x 54yrs, 27pyh) Use of substances other than those prescribed or required for medical reasons: No Have you been hit, kicked, punched, or otherwise hurt by someone within the past year? If so, by whom?: No Do you feel safe in your current relationship?: Yes Do you have thoughts of harming others: None Do you have a plan to hurt others: No Plan service: No Current occupational status: employed and retired Review of Systems Const Denies daytime sleepiness, Denies excessive sweating, Denies fatigue, Denies fev er(s), Denies lethargy, Denies malaise, Denies night sweats, Denies snoring and Denies weight loss Eyes Denies blurry vision and Denies itchy eyes ENT Denies nasal congestion, Denies post nasal drip, Denies sinus pain, Denies sinus pressure and Denies other ( Thrush) Card Denies chest pain, Denies pedal edema, Denies dyspnea, Reports dyspnea on exertion, Denies orthopnea and Denies paroxysmal nocturnal dyspnea Resp Denies cough, Denies hemoptysis, Denies excessive phlegm production, Denies dysp mckenzie, Reports dyspnea on exertion, Denies snoring and Denies wheezing GI Denies abdominal pain and Denies heartburn Musc Denies myalgias, Denies arthralgias and Denies joint swelling Skin/Breast Denies rash Neuro Denies memory loss and Denies seizure-like activity Psych Denies abnormal sleep pattern, Denies anxiety and Denies memory loss Endo Denies excessive sweating, Denies fatigue and Denies heat intolerance Regan/Lymph Denies easy bruising Aller/Immun Denies itchy eyes, Denies seasonal rhinorrhea and Denies wheezing Physical Exam Vital Signs: Last Vital Signs Pulse 91 03/20/25 14:13 BP 102/64 03/20/25 14:13 Pulse Ox 98 03/20/25 14:13 Oxygen Delivery Method Room Air 03/20/25 14:13 BMI result Body Mass Index 25.4 Const General: no acute distress and alert Nutritional Appearance: not obese Orientation/consciousness: Other orientation findings ( oriented) HEENT Head: Yes atraumatic Eyes General: appearance normal, both eyes and all related structures Sclerae: sclerae normal EOM: EOMs intact bilaterally Neck Neck: Yes supple Lymphatic: no lymphadenopathy noted Resp Effort & Inspection: normal respiratory effort and no use of accessory muscles Auscultation: clear to auscultation bilaterally Cardio Rate: regular rate Rhythm: regular rhythm Heart sounds: no gallops, no murmurs and no rubs Skin General skin exam: other ( warm) Extrem General: No clubbing, No cyanosis and No edema Assessment & Plan Assessment & Plan (1) Nicotine dependence, cigarettes, uncomplicated: Code(s): F17.210 - Nicotine dependence, cigarettes, uncomplicated Category: Medical Plan: Will obtain pulmonary function tests to evaluate for underlying COPD. (2) Opacity of lung on imaging study: Comment: Nodular biapical pulmonary opacities on 01/2025 LDCT - plan refer to Pulm Code(s): R91.8 - Other nonspecific abnormal finding of lung field Category: Medical Plan: Concern for an early pancoast tumor. Will obtain PET-CT for further evaluation. Orders: Orders PET CT fusion skull to thigh Today R91.8 - Other nonspecific abnormal finding of lung field PFT pulmonary function test Today F17.210 - Nicotine dependence, cigarettes, uncomplicated Coding Level of Care Code New Pt Level 4 (27096) Diagnoses Nicotine dependence, cigarettes, uncomplicated F17.210 Opacity of lung on imaging study R91.8
--- OUTSIDE RECORDS SUMMARY | 2025-03-20 14:14 | XMS_ITS | Encounter Summary ---
Author Organization [employer] Address [address] [facility] [address]t [place] [address] Care Team Providers Care Handle Attacher Name Role Phone Enrike Coronado MD Primary Care Prov ider Reason for Visit * Reason Onset Date Comments CT scan order 09/29/2024 Encounter Details Date Type Department Care Team (Late st Contact Info) Description 09/29/2024 Telephone [facility] MEDICINE [address] [place] [address] Enrike Coronado MD [address] [place] [phone] scan order Social History Tobacco Use [...] - 09/29/2024 11:43 AM EST Tc from [facility] with [facility] informing referral that was [...] documented as of this encounter Care Teams Handle Attacher Relationship Specialty Start Date End Date Enrike Coronado MD [address] [place] [address] PCP - General Internal Medicine 09/23/19 documented as of this encounter
--- OUTSIDE RECORDS SUMMARY | 2025-03-20 14:14 | XMS_ITS | Clinical Summary ---
Author Organization [facility] Address [address] [place] [address] Phone Care Team Providers Care Interior Design Instructor Name Role Phone Enrike Coronado Primary Care [...] Diabetes: Annual Urine Albumin-Creatinine Ratio (uACR) 07/23/2024 Depression Screening 08/06/2024 Diabetes: Blood Sugar Contro l Test (HGBA1C) 11/28/2024 05/30/2024 Influenza Vaccine (#1) 2025 Diabetes: Annual GFR (Glomerular Filtration Rate) 06/14/2025 [...] complete this topic Insurance [employer] [place] [id number] Care Teams Interior Design Instructor Relationship Specialty Start Date End Date Enrike Coronado [address] [place], [place] PCP - General Internal Medicine 11/07/19
== END 2025-03-20 14:31 | disposition home or self-care (01) ==
LOC: HO.HPS 14:12
PROVIDERS: PCP Internal Medicine; Visit Provider Internal Medicine Pulmonary Disease
DX: F17.210 Nicotine dependence, cigarettes, uncomplicated (principal); R91.8 Other nonspecific abnormal finding of lung field
CPT/HCPCS: 99204

== ENCOUNTER → 2025-03-20 14:11 | Outpatient (BNVA) | payer MEDICARE, SELFPAY | PROVIDERS: PCP Internal Medicine; Visit Provider Internal Medicine Pulmonary Disease | DX: R91.8 Other nonspecific abnormal finding of lung field (principal); F17.210 Nicotine dependence, cigarettes, uncomplicated | CPT/HCPCS: 99202 ==

== ENCOUNTER 2025-04-03 | Outpatient (REF) | payer MEDICARE, SELFPAY ==
--- OUTSIDE RECORDS SUMMARY | 2025-04-13 12:01 | XMS_ITS | Encounter Summary ---
Author Organization [employer] Address 75 [facility] 7 [place] [address] Care Team Providers Care Antenna Engineer Name Role Phone Enrike Coronado MD Primary Care Prov ider Reason for Visit * Reason Onset Date Comments Request For Order(s) 08/27/2024 Encounter Details Date Type Department Care Team ([facility] st Contact Info) Description 08/27/2024 Telephone [facility] MEDICINE [address] [place] [address] Enrike Coronado MD [address] [place] [address] Request For Order(s) Social History Tobacco Use [...] hours from now 8:27am [facility] -Chris- [phone] documented in this encounter Plan of Treatment Not on file documented as of this encounter Visit Diagnoses Not on filedocumented in this encounter Additional Health Concerns Assessment Noted Time PHQ-9 Depression Total Score: 2 05/29/20 24 11:39 AM EDT documented as of this encounter Care Teams Antenna Engineer Relationship Specialty Start Date End Date Enrike Coronado MD [address] [place] [address] PCP - General Internal Medicine 09/23/19 documented as of this encounter
--- OUTSIDE RECORDS SUMMARY | 2025-04-13 12:01 | XMS_ITS | Encounter Summary ---
Author Organization [employer] Address 75 [facility] 7t [place] [address] Care Team Providers Care Otr Owner Operator Truck Driver Name Role Phone Enrike Coronado MD Primary Care Prov ider Encounter Details Date Type Department Care Team (Late st Contact Info) Description 04/02/2025 Orders Only [place] [facility] Information [facility] [address] [place], [place] [phone] ProviderMartínez MD Social History Tobacco Use Types [...] documented as of this encounter Care Teams Otr Owner Operator Truck Driver Relationship Specialty Start Date End Date Enrike Coronado MD [address] [place] [phone] PCP - General Internal Medicine 09/23/19 documented as of this encounter
--- OUTSIDE RECORDS SUMMARY | 2025-04-13 12:01 | XMS_ITS | Encounter Summary ---
Author Organization [employer] Address 75 [facility] 7t [place] [address] Care Team Providers Care Special Events Assistant Name Role Phone Enrike Coronado MD Primary Care Prov ider Encounter Details Date Type Department Care Team (Late st Contact Info) Description 12/09/2024 Orders Only [facility] MEDICINE [address] [place] [address] Enrike Coronado MD [address] [place] [address] Social History Tobacco Use Types Packs/Day Years [...] documented as of this encounter Care Teams Special Events Assistant Relationship Specialty Start Date End Date Enrike Coronado MD [address] [place] [address] PCP - General Internal Medicine 09/23/19 documented as of this encounter
--- OUTSIDE RECORDS SUMMARY | 2025-04-13 12:01 | XMS_ITS | Encounter Summary ---
Author Organization [employer] Address 75 [facility] 7t [place] [address] Care Team Providers Care Home Economics Extension Worker Name Role Phone Enrike Coronado MD Primary Care Prov ider Reason for Visit * Reason Onset Date Comments CT scan order 09/29/2024 Encounter Details Date Type Department Care Team (Late st Contact Info) Description 09/29/2024 Telephone [facility] MEDICINE [address] [place] [address] Enrike Coronado MD [address] [place] [phone] scan order Social History Tobacco Use [...] - 09/29/2024 11:43 AM EST Tc from [facility] with [facility] informing referral [...] documented as of this encounter Care Teams Home Economics Extension Worker Relationship Specialty Start Date End Date Enrike Coronado MD [address] [place] [address] PCP - General Internal Medicine 09/23/19 documented as of this encounter
--- OUTSIDE RECORDS SUMMARY | 2025-04-13 12:01 | XMS_ITS | Clinical Summary ---
Author Organization [employer] Address 75 [facility] 7t [place] [address] Care Team Providers Care Door Worker Name Role Phone Enrike Coronado MD Primary Care Prov ider Allergies No known active allergies Medications Aspirin Low Dose 81 MG EC tablet Take 81 mg by mouth in the morning. 05/16/2022 Active Blood Glucose Monitoring Suppl (YaBeamTouch Verio Reflect) w/Device kit USE TO CHECK [...] THREE TIMES DAILY DIRECTED. 11/22/2021 Active Lancets (YaBeamTouch Delica Plus [id number]) misc USE TO CHECK BLOOD SUGAR 3 [...] Department Care Team Description 04/02/2025 Orders Only [facility] Information Management [address] [place] [address] Provider, MD Martínez 01/29/2025 Orders Only [facility] External Provider, [facility] from Last 3 Months Immunizations Immunization Administration [...] Additional history exists Lipid Panel 12/15/2025 12/15/2024, 04/2024, 12/14/2022, Additional history exists HIB Vaccines [...] Laterality Modality Lung Computed Tomogra phy 01/29/2025 5:4 8 PM EDT Narrative 01/29/2025 5:49 PM EDT [address] [address] [address] Scan Report Signed Patient: Parker Muhammad MR#: [id number] : 1955 Acct:[id number] Age/Sex: 69 / M ADM Date: 01/29/25 Loc: HO.CT Attending Dr: Corie Carmona PA-C Ordering Physician: Corie Carmona PA-C Date of Service: 01/29/25 Procedure(s): CT lung screen follow up Accession Number(s): [id number] cc: Enrike Coronado MD; Corie Carmona PA-C Report Number: [id number]: Total DLP = 68.00 mGy-cm CLINICAL HISTORY: [...] in OV> 01/29/251747 DD/ 47 TD/TT: 01/29/251747 Complaint Investigator: Procedure Note Donotuseinterpreter, Image - 01/29/[address] [place] [address] [address] Scan Report Signed Patient: Parker Muhammad [facility]#: [id number] : 4Acct:[id number] Age/Sex: 69 / MADM Date: 01/29/25 Loc: HO.CT Attending Dr: Corie Carmona PA-C Ordering Physician: Corie Carmona PA-C Date of Service: 01/29/25 Procedure(s): CT lung screen follow up Accession Number(s): [id number] cc: Enrike Coronado MD; Corie Carmona PA-C Report Number: [id number]: Total DLP = 68.00 mGy-cm CLINICAL HISTORY: [...] in OV> 01/29/251747 DD/ 47 TD/TT: 01/29/251747 Complaint Investigator: [facility] External Provider IM CT PROCEDURES Final Result * Hemoglobin A1c (12/15/2024 10:52 AM EDT) Hemoglobin A1c 4.9 <6.0 % [facility] Comment:Hemoglobin A1C Refer ence Range Adults: 4.8 - 6.0 % Non diabetic: < 6.0 % Goal: < 7.0 %Additional Action Suggested: > 8.0 %Note: Hemoglobin A1c results are invalid for patients with abnormal amounts of HbF. Blood transfusions may impact the HbA1c concentration in the patient sample. Estimated Average Glucose 94 mg/dL [facility] Comment:eAG = Estimated ave rage glucose which is %A1C expressed asaverage glucose, using the formula of the J7W-QttqidoZcqpfux Glucose study (ADAG), Diabetes Care, Vol.31,#8,Mar. 2007 Blood Venous blood specimen / Unknown 12/15/2024 10:52 AM EDT 12/15/2024 2:10 PM EDT Enrike Peguero MD LAB BLOOD ORDERABL ES Final Result [facility] [address] [place] [phone] * (ABNORMAL) Lipid Panel, Standard (12/15/2024 10:52 AM EDT) Triglycerides 66 <150 mg/dL [facility] Comment:Desirable Triglyceri de: less than 150 mg/dLBorderline High Triglyceride 150-199 mg/dLHigh Triglyceride: 200-499 mg/dLVery High Triglyceride: greater than or equal to 5OO mg/dL Cholesterol 85 <200 mg/dL [facility] Comment:Desirable Cholestero l: less than 200 mg/dLBorderline High Cholesterol: 200-239 mg/dLHigh Cholesterol: greater than 239 mg/dL LDL Cholesterol Calculated 51 <100 mg/dL [facility] Comment:Desirable LDL: less than 100 mg/dLNear Optimal/Above Optimal LDL: 110- 129 mg/dLBorderline High LDL: 130-159 mg/dLHigh LDL: 160-189 mg/dLVery High LDL: greater than or equal to 190 mg/dL HDL Cholesterol 21(L) >40 mg/dL [facility] Comment:Desirable HDL: great er than 40 mg/dL Note: This HDL assay may give artificially low results in patients with liver disease. Blood Venous blood specimen / Unknown 12/15/2024 10:52 AM EDT 12/15/2024 2:10 PM EDT Enrike Peguero MD LAB BLOOD ORDERABL ES Final Result [facility] [address] [place] [phone] [phone] * ALBUMIN, RANDOM URINE W/CREATININE (11/23/2021 [...] ORDERABL ES Final Result Performing Organization Address City/[facility]/ZIP Co de Phone Number [facility] [address] from Last 3 Months or Most Recently Relevant to Health Maintenance Insurance [facility] MEDICARE REPLACEMENT Care Teams Door Worker Relationship Specialty Start Date End Date Enrike Coronado MD [address] [place] [phone] PCP - General Internal Medicine 09/23/19
--- OUTSIDE RECORDS SUMMARY | 2025-04-13 12:01 | XMS_ITS | Encounter Summary ---
Author Organization [employer] Address 75 [facility] 7 [place] [address] Care Team Providers Care Hat And Cap Opener Name Role Phone Enrike Coronado MD Primary Care Prov ider Reason for Visit * Reason Onset Date Comments Med Refill 11/21/2022 Encounter Details Date Type Department Care Team (Late st Contact Info) Description 11/21/2022 Telephone [facility]S [address] [place] [address] Enrike Coronado MD [address] [place] [address] Med Refill Social History Tobacco Use Types [...] lisinopril-hydroCHLOROthiazide 20-12.5 MG tablet Please sent to [id number] - [place], [place] - [address] documented in this encounter Plan of Treatment Not on file documented as of this encounter Visit Diagnoses Not on filedocumented in this encounter Care Teams Hat And Cap Opener Relationship Specialty Start Date End Date Enrike Coronado MD [address] [place] [address] PCP - General Internal Medicine 09/23/19 documented as of this encounter
--- OUTSIDE RECORDS SUMMARY | 2025-04-13 12:01 | XMS_ITS | Clinical Summary ---
Author Organization [facility] Address [address] [place] [address] Phone Care Team Providers Care Dental Scheduling Coordinator Name Role Phone Enrike Coronado Primary Care Provide r Encounters Date Type Department Care Team Description 04/01/2025 10:34 AM EDT - 04/01/2025 11:59 PM EDT Hospital Encounter [facility] PET Scan [address] [place] [address] Other nonspecific abnormal finding of lung field; Pancoast tumor, unspecified laterality (CMS/HCC V24, CMS/HCC V28) Discharge Disposition: Home or Self Care from Last 3 Months Social History Tobacco [...] of lung field Pancoast tumor, unspecified laterality (CMS/[facility] V24, CMS/[facility] V28) from Last 3 Months Results [...] Signed Date: 04/01/2025 13:10 ET Workstation ID: [id number] Transcribed By: Self Edit Transcribed Date: 04/01/2025 [...] Signed Date: 04/01/2025 13:10 ET Workstation ID: [id number] Transcribed By: Self Edit Transcribed Date: 04/01/2025 13:00 ET us Audie Archer MD IMG NM PROCEDURES Final Result from Last 3 Months Insurance [employer] MEDICARE Care Teams Dental Scheduling Coordinator Relationship Specialty Start Date End Date Enrike Coronado [address] [place] [address] PCP - General Internal Medicine 11/07/19
--- OUTSIDE RECORDS SUMMARY | 2025-04-13 12:01 | XMS_ITS | Encounter Summary ---
Author Organization [employer] Address 75 [facility] 7t [place] [address] Care Team Providers Care Fish And Wildlife Technician Name Role Phone Enrike Coronado MD Primary Care Prov ider Encounter Details Date Type Department Care Team (Late st Contact Info) Description 07/26/2022 Orders Only [facility] MEDICINE [address] [place], [place] [phone] Enrike Coronado MD [address] [place] [address] Iron deficiency (Primary Dx) Social History Tobacco [...] metabolism documented in this encounter Care Teams Fish And Wildlife Technician Relationship Specialty Start Date End Date Enrike Coronado MD [address] [place] [address] PCP - General Internal Medicine 09/23/19 documented as of this encounter
== END 2025-04-03 00:01 | disposition home or self-care (01) ==
LOC: CF
PROVIDERS: PCP Internal Medicine; Visit Provider Internal Medicine Pulmonary Disease
DX: R91.1 Solitary pulmonary nodule (principal); F17.210 Nicotine dependence, cigarettes, uncomplicated
CPT/HCPCS: 99212

== ENCOUNTER 2025-04-03 10:43 | Outpatient (AMB) | payer MEDICARE, SELFPAY ==
--- OUTSIDE RECORDS SUMMARY | 2025-04-01 10:34 | XMS_ITS | Encounter Summary ---
Author Organization [facility] Address [address] [place] [address] Care Team Providers Care Qualified Craft Worker Electrician Name Role Phone Enrike Coronado Primary Care Provide r Reason for Referral * Imaging (Routine) - Pending Review Specialty Diagnoses / Procedures Referred By Oswaldo edwards Referred To Contact Radiology Diagnoses Other nonspecific abnormal finding of lung field Pancoast tumor, unspecified laterality (CMS/HCC V24, CMS/HCC V28) Procedures PET CT Skull to Mid Thigh Initial Audie Archer MD [address] [place] [address] Phone: tel: fax: [facility] Referral ID Status Reason Start Date Expiration Date V isits Requested Visits Authorized [id number] Pending Review 03/31/2025 03/31/2026 1 1 Reason for Visit * Imaging (Routine) - Pending Review Specialty Diagnoses / Procedures Referred By Oswaldo edwards Referred To Contact Radiology Diagnoses Other nonspecific abnormal finding of lung field Pancoast tumor, unspecified laterality (CMS/HCC V24, CMS/HCC V28) Procedures PET CT Skull to Mid Thigh Initial Audie Archer MD [address] [place] [address] Phone: tel: fax: [facility] Referral ID Status Reason Start Date Expiration Date V isits Requested Visits Authorized [id number] Pending Review 03/31/2025 03/31/2026 1 1 Encounter Details Date Type Department Care Team (Latest Contact Info) Description 04/01/2025 10:34 AM EDT Hospital Encounter [facility] PET Scan [address] [place] [address] Other nonspecific abnormal finding of [...] Signed Date: 04/01/2025 13:10 ET Workstation ID: [id number] Transcribed By: Self Edit Transcribed Date: 04/01/2025 [...] Signed Date: 04/01/2025 13:10 ET Workstation ID: [id number] Transcribed By: Self Edit Transcribed Date: 04/01/2025 13:00 ET Audie Archer MD [facility] PROCEDURES Final Result documented in this encounter [...] 04/01/2025 documented in this encounter Care Teams Qualified Craft Worker Electrician Relationship Specialty Start Date End Date Enrike Coronado [address] [place], [place] PCP - General Internal Medicine 11/07/19 documented as of this encounter
[2025-04-03 10:53] VITALS: BP 111/58; PULSE 71; O2SAT 99; BMI 25.5
--- NOTE | 2025-04-03 10:53 | MHC.OFFVIS ---
Vital Signs 04/03/25 10:53 Height 5 ft 11 in Weight 183 lb BMI 25.5 BP 111/58 L Blood Pressure Location Rt brachial Position Sitting Pulse 71 Pulse Source Pulse Oximeter Pulse Oximetry (%) 99 Oxygen Delivery Method Room Air Intake Visit Reasons: PETScan results Allergies No Known Allergies Allergy (Verified 04/03/25 10:57) HPI HPI PETScan results: Details: 69-year-old gentleman, active 30+ pack-year smoker referred from lung cancer screening program for concern of possible early pancoast tumor on screening CT chest. Patient does complain of intermittent dyspnea on exertion. He is not currently using a bronchodilator therapy. His employed with no exposure to industrial dusts. Patient denies family history of lung disease. After the last office visit patient had his PET scan that showed 1.8 cm FDG avid left apical/paraspinal nodule. [facility] Medical History (Updated 04/03/25 @ 11:09 by Audie Archer MD) Hepatitis C, chronic Hypertension Hyperlipidemia Diabetes GERD (gastroesophageal reflux disease) Anemia Nicotine dependence, cigarettes, uncomplicated Surgical History History of bronchoscopy Social History (Updated 03/20/25 @ 14:19 by KRISTOFER Marquez) Household Members: Family Housing: Other Patient Tobacco Use Status: Current everyday Tobacco user Tobacco use type: Cigarette Cigarettes Per Day: 10 Years Smoked: (onset 15yo, 1/2ppd x 54yrs, 27pyh) service: No Current occupational status: employed and retired Review of Systems Const Denies daytime sleepiness, Denies excessive sweating, Denies fatigue, Denies fever(s), Denies lethargy, Denies malaise, Denies night sweats, Denies snoring and Denies weight loss Eyes Denies blurry vision and Denies itchy eyes ENT Denies nasal congestion, Denies post nasal drip, Denies sinus pain, Denies sinus pressure and Denies other ( Thrush) Card Denies chest pain, Denies pedal edema, Denies dyspnea, Denies orthopnea and Denies paroxysmal nocturnal dyspnea Resp Denies cough, Denies hemoptysis, Denies excessive phlegm production, Denies dyspnea, Denies snoring and Denies wheezing GI Denies abdominal pain and Denies heartburn Musc Denies myalgias, Denies arthralgias and Denies joint swelling Skin/Breast Denies rash Neuro Denies memory loss and Denies seizure-like activity Psych Denies abnormal sleep pattern, Denies anxiety and Denies memory loss Endo Denies excessive sweating, Denies fatigue and Denies heat intolerance Regan/Lymph Denies easy bruising Aller/Immun Denies itchy eyes, Denies seasonal rhinorrhea and Denies wheezing Physical Exam Vital Signs: Last Vital Signs Pulse 71 04/03/25 10:53 BP 111/58 L 04/03/25 10:53 Pulse Ox 99 04/03/25 10:53 Oxygen Delivery Method Room Air 04/03/25 10:53 BMI result Body Mass Index 25.5 Const General: no acute distress and alert Nutritional Appearance: not obese Orientation/consciousness: Other orientation findings ( oriented) HEENT Head: Yes atraumatic Eyes General: appearance normal, both eyes and all related structures Sclerae: sclerae normal EOM: EOMs intact bilaterally Neck Neck: Yes supple Lymphatic: no lymphadenopathy noted Resp Effort & Inspection: normal respiratory effort and no use of accessory muscles Auscultation: clear to auscultation bilaterally Cardio Rate: regular rate Rhythm: regular rhythm Heart sounds: no gallops, no murmurs and no rubs Skin General skin exam: other ( warm) Extrem General: No clubbing, No cyanosis and No edema Assessment & Plan Assessment & Plan (1) Pulmonary nodule 1 cm or greater in diameter: Code(s): R91.1 - Solitary pulmonary nodule Category: Medical Plan: Results of PET scan reviewed, FDG avid left apical/paraspinal nodule, will obtain transcutaneous biopsy. Orders: Orders CT biopsy lung LT Today R91.1 - Solitary pulmonary nodule Coding Level of Care Code Est Pt Level 3 (24096) Diagnoses Pulmonary nodule 1 cm or greater in diameter R91.1
--- OUTSIDE RECORDS SUMMARY | 2025-04-03 11:22 | XMS_ITS | Encounter Summary ---
Author Organization [employer] Address [address] [facility] 7[address] [place] [address] Care Team Providers Care Land Conservation Specialist Name Role Phone Enrike Coronado MD Primary Care Prov ider Encounter Details Date Type Department Care Team (Late st Contact Info) Description 04/02/2025 Orders Only [facility] [address] [place], [place] [phone] ProviderMartínez MD Social History Tobacco Use Types Packs/Day Years Used Date Smoking Tobacco: Every Day Cigarettes Depression Answer Date Recorded Patient Health Questionnaire-9 Score 2 05/29/2024 Patient Health Questionnaire-9 Score 2 05/29/2024 Last PHQ-9: Questionnaire Data Not on file 1 Housing Stability Answer Date Recorded What is your housing situation today? I have artisquyen connolly 05/22/[address] you [...] Procedure Name Priority Date/Time Associated Diagnosis Comments PET/CT BONE SKULL BASE TO MID THIGH Routine 04/01/2025 2:24 PM EDT documented in this encounter Results * PET/CT Bone Skull Base to Mid Thigh (04/01/2025 2:24 PM EDT) Anatomical Region Laterality Modality Body Computed Tomogra phy Historical Provider MD LYN CT PROCEDURES Final R esult documented in this encounter Visit Diagnoses Not on filedocumented in this encounter Additional Health Concerns Assessment Noted Time PHQ-9 Depression Total Score: 2 05/29/20 24 11:39 AM EDT documented as of this encounter Care Teams Land Conservation Specialist Relationship Specialty Start Date End Date Enrike Coronado MD [address] [place] [address] PCP - General Internal Medicine 09/23/19 documented as of this encounter
--- OUTSIDE RECORDS SUMMARY | 2025-04-03 11:22 | XMS_ITS | Encounter Summary ---
Author Organization [employer] Address [address] [facility] [address] [place] [address] Care Team Providers Care Lpn Or Medical Assistant Name Role Phone Enrike Coronado MD Primary Care Prov ider Reason for Visit * Reason Onset Date Comments Request For Order(s) 08/27/2024 Encounter Details Date Type Department Care Team ([facility] st Contact Info) Description 08/27/2024 Telephone [facility] MEDICINE [address] [place] [address] Enrike Coronado MD [address] [place] [address] Request For Order(s) Social History Tobacco Use [...] hours from now 8:27am [facility] -[facility]- [phone] documented in this encounter Plan of Treatment Not on file documented as of this encounter Visit Diagnoses Not on filedocumented in this encounter Additional Health Concerns Assessment Noted Time PHQ-9 Depression Total Score: 2 05/29/20 24 11:39 AM EDT documented as of this encounter Care Teams Lpn Or Medical Assistant Relationship Specialty Start Date End Date Enrike Coronado MD [address] [place] [address] PCP - General Internal Medicine 09/23/19 documented as of this encounter
--- OUTSIDE RECORDS SUMMARY | 2025-04-03 11:22 | XMS_ITS | Encounter Summary ---
Author Organization [employer] Address [address] [facility] [address] [place] [address] Care Team Providers Care Leaf Conditioner Name Role Phone Enrike Coronado MD Primary Care Prov ider Reason for Visit * Reason Onset Date Comments CT scan order 09/29/2024 Encounter Details Date Type Department Care Team (Late st Contact Info) Description 09/29/2024 Telephone [facility] MEDICINE [address] [place] [address] Enrike Coronado MD [address] [place] [address] scan order Social History Tobacco Use [...] - 09/29/2024 11:43 AM EST Tc from [facility] with [facility] informing referral that [...] documented as of this encounter Care Teams Leaf Conditioner Relationship Specialty Start Date End Date Enrike Coronado MD [address] [place] [address] PCP - General Internal Medicine 09/23/19 documented as of this encounter
--- OUTSIDE RECORDS SUMMARY | 2025-04-03 11:22 | XMS_ITS | Clinical Summary ---
Author Organization [facility] Address [address] [place] [address] Phone Care Team Providers Care Online Media Director Name Role Phone Enrike Coronado Primary Care Provide r Encounters Date Type Department Care Team Description 04/01/2025 10:34 AM EDT Hospital Encounter [facility] PET Scan [address] [place] [address] Other nonspecific abnormal finding of lung field; Pancoast tumor, unspecified laterality (CMS/HCC V24, CMS/HCC V28) from Last 3 Months Social History Tobacco Use Types Packs/Day Years Used Date Smoking Tobacco: Every Day Cigarettes Smokeless Tobacco: Never Sex and Gender Information Value Date Recorded Sex Assigned at Not on file Legal Sex Male 7:48 PM EST Gender Identity Not on file Sexual Orientation Not on file Obstetrics History Plan of Treatment Health Maintenance Due Date Last Done Comments DTaP,Tdap,and Td Vaccines (1 - Tdap) 1973 Pneumococcal Vaccine: 50+ Years (1 of 2 - PCV) 1973 Zoster Vaccines (1 of 2) 1973 RSV Immunization Adult Patients (1 - Risk [...] 3-dose series) 03/14/2023 10/12/2022, 09/14/2022 COVID-19 Vaccine (4 - 2023-2 5 season) 2024 08/26/2021, 10/12/2020, 09/23/2020 Depression Screening 08/06/2024 Influenza Vaccine (#1) 2025 Hypertension/CHF/CAD Annual BMP Blood Test 06/14/2025 06/14/2024 Cholesterol Screening (Lipid Panel) 12/15/2029 12/15/2024, 06/14/2024 HIB Vaccines Aged Out No longer [...] of lung field Pancoast tumor, unspecified laterality ([facility] V24, [facility] V28) from Last 3 Months Results * PET CT Skull to Mid [...] Signed Date: 04/01/2025 13:10 ET Workstation ID: [id number] Transcribed By: Self Edit Transcribed Date: 04/01/2025 [...] Signed Date: 04/01/2025 13:10 ET Workstation ID: [id number] Transcribed By: Self Edit Transcribed Date: 04/01/2025 13:00 ET us Audie Archer MD [facility] PROCEDURES Final Result from Last 3 Months Insurance [employer] MEDICARE Care Teams Online Media Director Relationship Specialty Start Date End Date Enrike Coronado [address] [place], [place] PCP - General Internal Medicine 11/07/19
--- OUTSIDE RECORDS SUMMARY | 2025-04-03 11:23 | XMS_ITS | Encounter Summary ---
Author Organization [employer] Address [address] [facility] [address] [place] [address] Care Team Providers Care Hvac Installer Name Role Phone Enrike Coronado MD Primary Care Prov ider Reason for Visit * Reason Onset Date Comments Med Refill 11/21/2022 Encounter Details Date Type Department Care Team (Late st Contact Info) Description 11/21/2022 Telephone [facility] PEDS [address] [place] [address] Enrike Coronado MD [address] [place] [address] Med Refill Social History Tobacco Use Types [...] lisinopril-hydroCHLOROthiazide 20-12.5 MG tablet Please sent to [id number] - [place], [place] - [address] documented in this encounter Plan of Treatment Not on file documented as of this encounter Visit Diagnoses Not on filedocumented in this encounter Care Teams Hvac Installer Relationship Specialty Start Date End Date Enrike Coronado MD [address] [place] [address] PCP - General Internal Medicine 09/23/19 documented as of this encounter
--- OUTSIDE RECORDS SUMMARY | 2025-04-03 11:23 | XMS_ITS | Encounter Summary ---
Author Organization [employer] Address [address] [facility] [address] [place] [address] Care Team Providers Care Writing Tutor Name Role Phone Enrike Coronado MD Primary Care Prov ider Encounter Details Date Type Department Care Team (Late st Contact Info) Description 07/26/2022 Orders Only [facility] MEDICINE [address] [place], [place] [phone] Enrike Coronado MD [address] [place] [address] Iron deficiency (Primary Dx) Social History Tobacco [...] metabolism documented in this encounter Care Teams Writing Tutor Relationship Specialty Start Date End Date Enrike Coronado MD [address] [place] [address] PCP - General Internal Medicine 09/23/19 documented as of this encounter
--- OUTSIDE RECORDS SUMMARY | 2025-04-03 11:23 | XMS_ITS | Encounter Summary ---
Author Organization [employer] Address [address] [facility] [address] [place] [address] Care Team Providers Care Lehr Tender Name Role Phone Enrike Coronado MD Primary Care Prov ider Encounter Details Date Type Department Care Team (Late st Contact Info) Description 12/09/2024 Orders Only [facility] MEDICINE [address] [place] [address] Enrike Coronado MD [address] [place] [address] Social History Tobacco Use Types Packs/Day Years [...] documented as of this encounter Care Teams Lehr Tender Relationship Specialty Start Date End Date Enrike Coronado MD [address] [place] [address] PCP - General Internal Medicine 09/23/19 documented as of this encounter
--- OUTSIDE RECORDS SUMMARY | 2025-04-03 11:23 | XMS_ITS | Clinical Summary ---
Author Organization [employer] Address [address] [facility] 7t [place] [address] Care Team Providers Care Broomcorn Press Feeder Name Role Phone Enrike Coronado MD Primary Care Prov ider Allergies No known active allergies Medications Aspirin Low Dose 81 MG EC tablet Take 81 mg by mouth in the morning. 05/16/2022 Active Blood Glucose Monitoring Suppl ([employer] (ProCiv)Touch Verio Reflect) w/Device kit USE TO CHECK [...] THREE TIMES DAILY DIRECTED. 11/22/2021 Active Lancets ([employer] (ProCiv)Touch Delica Plus [id number]) misc USE TO CHECK BLOOD SUGAR 3 [...] months Liver lesion 10/08/2024 Assessment & Plan (01/08/2025 12:20 PM EDT): Ct scan showed stable liver lesion, and cirrhosis, will refer to GI for evaluation Assessment & Plan (12/08/2024 11:15 AM EDT): [...] Iron deficiency anemia 12/04/2022 Assessment & Plan (01/08/2025 12:19 PM EDT): Patient refers taking oral iron replacement daily, still his levels are low, denied rectal bleeding, will refer to hemtology for evaluation Assessment & Plan (12/08/2024 11:15 AM EDT): [...] Encounters Date Type Department Care Team Description 04/02/2025 Orders Only [facility] [address] [place], [place] [phone] Provider, MD Martínez 01/29/2025 Orders Only [facility] External Provider, [facility] 01/08/2025 10:30 AM EDT Telemedicine [facility] MED & PEDS [address] [place], [place] [phone] Enrike Coronado MD Liver lesion (Primary Dx); Iron deficiency anemia secondary to inadequate dietary iron intake 01/08/2025 Travel from Last 3 Months Immunizations Immunization Administration Dates Next Due Hep A, Adult [...] Sign Reading Time Taken Comments Blood Pressure 119/52 01/08/2025 10:50 AM EDT Pulse 72 01/08/2025 10:50 AM EDT Temperature 36.7 C (98 F) 05/29/2024 11:02 AM EDT Respiratory Rate 22 05/29/2024 11:02 AM EDT Oxygen Saturation 98% 05/29/2024 11:02 AM EDT Inhaled Oxygen Concentration - - Weight 84.9 kg (187 lb 2 oz) 05/29/2024 11:02 AM EDT Height 180.3 cm (5' 11 ) 05/29/2024 11:02 AM EDT Body Mass Index 26.1 05/29/2024 11:02 AM EDT Plan of Treatment Health Maintenance Due Date [...] 2024 08/26/2021, 10/12/2020, 09/23/2020 Influenza Vaccine (#1) 2025 Alcohol/Substance Use Screening 05/29/2025 05/29/2024 Depression Screening 05/29/2025 05/29/2024, 05/29/20 SDOH Screening 05/29/2025 05/29/2024 Tobacco Screening 05/29/2025 05/29/2024 Diabetes: Hemoglobin A1C 06/17/2025 025, 05/30/2024, 04/12/2022, Additional history exists Lipid Panel 12/15/2025 12/15/2024, 11/0 04/2024, 12/14/2022, Additional history exists HIB Vaccines Aged Out [...] MID THIGH Routine 04/01/2025 2:[address] LUNG SCREENING Routine 01/29/2025 5:4 8 PM EDT HEMOGLOBIN A1C Routine 12/15/2024 10:52 AM EDT Primary hypertension LIPID PANEL, STANDARD Routine 12/15/2024 10:52 AM EDT Primary hypertension ALBUMIN, RANDOM URINE W/CREATININE Routine 11/23/2021 10:00 AM EDT from Last 3 Months or Most Recently Relevant to Health Maintenance Results * PET/CT Bone Skull Base to Mid Thigh (04/01/2025 2:24 PM EDT) Anatomical Region Laterality Modality Body Computed Tomogra phy us Historical Provider MD LYN CT PROCEDURES Final R esult * CT Lung Screening Low dose (01/29/2025 5:48 PM EDT) Anatomical Region Laterality Modality Lung Computed Tomogra phy 01/29/2025 5:48 PM EDT Narrative 01/29/2025 5:49 PM EDT [place] [address] CT Scan Report Signed Patient: Parker Muhammad MR#: [id number] : 1955 Acct:[id number] Age/Sex: 69 / M ADM Date: 01/29/25 Loc: HO.CT Attending Dr: Corie Carmona PA-C Ordering Physician: Corie Carmona PA-C Date of Service: 01/29/25 Procedure(s): CT lung screen follow up Accession Number(s): [id number] cc: Enrike Coronado MD; Corie Carmona PA-C Report Number: [id number]: Total DLP = 68.00 mGy-cm CLINICAL HISTORY: F17.210 - Nicotine dependence, cigarettes, uncomplicated --- Additional Notes or Special Instructions: RLL cyst measuring 3.5 x 2.[address] lung cancer screening (LDCT) Comparison: None provided Technique: Axial CT images of the chest using low-dose technique. Referring provider counseled the patient on shared decision-making for LDCT screening. Additional counseling was provided on smoking cessation. Effective radiation dose total: DLP 56.8 mGycm, CTDIvol 1.5 mGy. Findings: Lung: No evidence of pneumonia or edema. Mild apical predominant emphysema. Nodular biapical pulmonary opacities are present as before, largest of which is in the left medial apex, currently measuring 17 mm on image 21 (previously measuring 13 mm ). No change in the cystic focus within the superior segment right lower lobe with mural nodularity. Coronary artery calcifications: Moderate Limited upper abdomen: Unremarkable Other: None Impression: 1. Coronary artery disease. 2. LungRADS 4B - Suspicious: PET/CT, and/or tissue sampling recommended depending on the probability of malignancy and comorbidities. ##L4B## Category 1: Normal; continue annual screening Category 2: Benign appearance or behavior, continue annual screening Category 3: Probably benign, [address] recommended Category 4A: Suspicious, [address] recommended; may consider PET/CT Category 4B: Suspicious, Additional diagnostics and/or tissue sampling recommended Category 4X: Suspicious, Additional diagnostics and/or tissue sampling recommended Category 0: Recalls (incomplete screen due to Incomplete coverage, Noise, Respiratory motion, Expiration, Obscured by acute abnormality) This document has been electronically signed by: Pam Meza MD on 01/29/2025 17:48:23 Dictated By: Pam Meza MD Signed By: <Electronically signed by Pam Meza MD in OV> 01/29/251747 DD/ 47 TD/TT: 01/29/251747 Dukey Rider: Procedure Note Donotuseinterpreter, Image - 01/29/[address] [address] [address] Scan Report Signed Patient: Parker Muhammad [facility]#: [id number] : 4Acct:[id number] Age/Sex: 69 / MADM Date: 01/29/25 Loc: HO.CT Attending Dr: Corie Carmona PA-C Ordering Physician: Corie Carmona PA-C Date of Service: 01/29/25 Procedure(s): CT lung screen follow up Accession Number(s): [id number] cc: Enrike Coronado MD; Corie Carmona PA-C Report Number: [id number]: Total DLP = 68.00 mGy-cm CLINICAL HISTORY: F17.210 - Nicotine dependence, cigarettes, uncomplicated--- Additional Notes or Special Instructions: RLL cyst measuring 3.5 x 2.[address] lung cancer screening (LDCT) Comparison: None provided Technique: Axial CT images of the chest using low-dose technique. Referring provider counseled the patient on shared decision-making for LDCT screening. Additional counseling was provided on smoking cessation. Effective radiation dose total: DLP 56.8 mGycm, CTDIvol 1.5 mGy. Findings: Lung: No evidence of pneumonia or edema. Mild apical predominant emphysema. Nodular biapical pulmonary opacities are present as before, largest of which is in the left medial apex, currently measuring 17 mm on image 21 (previously measuring 13 mm ). No change in the cystic focus within the superior segment right lower lobe with mural nodularity. Coronary artery calcifications: Moderate Limited upper abdomen: Unremarkable Other: None Impression: 1. Coronary artery disease. 2. LungRADS 4B - Suspicious: PET/CT, and/or tissue sampling recommended depending on the probability of malignancy and comorbidities. ##L4B## Category 1: Normal; continue annual screening Category 2: Benign appearance or behavior, continue annual screening Category 3: Probably benign, [address] recommended Category 4A: Suspicious, [address] recommended; may consider PET/CT Category 4B: Suspicious, Additional diagnostics and/or tissue sampling recommended Category 4X: Suspicious, Additional diagnostics and/or tissue sampling recommended Category 0: Recalls (incomplete screen due to Incomplete coverage, Noise, Respiratory motion, Expiration, Obscured by acute abnormality) This document has been electronically signed by: Pam Meza MD on 01/29/2025 17:48:23 Dictated By: Pam Meza MD Signed By: <Electronically signed by Pam Meza MD in OV> 01/29/251747 DD/ 47 TD/TT: 01/29/251747 Dukey Rider: us [facility] External Provider IMG CT PROCEDURES Final Result * Hemoglobin A1c (12/15/2024 10:52 AM EDT) Hemoglobin A1c 4.9 <6.0 % [facility] Comment:Hemoglobin A1C Refer ence Range Adults: 4.8 - 6.0 % Non diabetic: < 6.0 % Goal: < 7.0 %Additional Action Suggested: > 8.0 %Note: Hemoglobin A1c results are invalid for patients with abnormal amounts of HbF. Blood transfusions may impact the HbA1c concentration in the patient sample. Estimated Average Glucose 94 mg/dL [facility] Comment:eAG = Estimated ave rage glucose which is %A1C expressed asaverage glucose, using the formula of the V9I-NwyeejjDwkywry Glucose study (ADAG), Diabetes Care, Vol.31,#8,Mar. 2007 Blood Venous blood specimen / Unknown 12/15/2024 10:52 AM EDT 12/15/2024 2:10 PM EDT us Enrike Peguero MD LAB BLOOD ORDERABL ES Final Result [facility] [address] [place] [phone] * (ABNORMAL) Lipid Panel, Standard (12/15/2024 10:52 AM EDT) Triglycerides 66 <150 mg/dL [facility] Comment:Desirable Triglyceri de: less than 150 mg/dLBorderline High Triglyceride 150-199 mg/dLHigh Triglyceride: 200-499 mg/dLVery High Triglyceride: greater than or equal to 5OO mg/dL Cholesterol 85 <200 mg/dL [facility] Comment:Desirable Cholestero l: less than 200 mg/dLBorderline High Cholesterol: 200-239 mg/dLHigh Cholesterol: greater than 239 mg/dL LDL Cholesterol Calculated 51 <100 mg/dL [facility] Comment:Desirable LDL: less than 100 mg/dLNear Optimal/Above Optimal LDL: 110- 129 mg/dLBorderline High LDL: 130-159 mg/dLHigh LDL: 160-189 mg/dLVery High LDL: greater than or equal to 190 mg/dL HDL Cholesterol 21(L) >40 mg/dL [facility] Comment:Desirable HDL: great er than 40 mg/dL Note: This HDL assay may give artificially low results in patients with liver disease. Blood Venous blood specimen / Unknown 12/15/2024 10:52 AM EDT 12/15/2024 2:10 PM EDT us Enrike Peguero MD LAB BLOOD ORDERABL ES Final Result Performing Organization Address [facility] Co de Phone Number [facility] [address] [place] [phone] * ALBUMIN, RANDOM URINE W/CREATININE (11/23/2021 10:00 AM EDT) Microalbumin Urine 0.3 See Note: mg/dL [facility] Comment: Reference Range: Reference Range Not established Microalb/Creat Ratio 3 <30 mcg/mg creat [facility] Comment: The ADA defines abnormalities in albumin excretion as follows: Albuminuria Category Result (mcg/mg creatinine) Normal to Mildly increased <30 Moderately increased 30-299 Severely increased > OR = 300 The ADA recommends that at least two of three specimens collected within a 3-6 month period be abnormal before considering a patient to be within a diagnostic category. Creatinine, Urine 112 20 - 320 mg/dL [facility] 11/23/2021 10:0 0 AM EDT us Enrike Peguero MD LAB URINE ORDERABL ES Final Result Performing Organization Address [facility] Co de Phone Number [facility] [address] from Last 3 Months or Most Recently Relevant to Health Maintenance Insurance [facility] MEDICARE REPLACEMENT Care Teams Broomcorn Press Feeder Relationship Specialty Start Date End Date Enrike Coronado MD [address] [place] [phone] PCP - General Internal Medicine 09/23/19
== END 2025-04-03 11:29 | disposition home or self-care (01) ==
LOC: HO.HPS 10:44
PROVIDERS: PCP Internal Medicine; Visit Provider Internal Medicine Pulmonary Disease
DX: R91.1 Solitary pulmonary nodule (principal)
CPT/HCPCS: 99213

== ENCOUNTER 2025-04-28 08:50 | Day surgery (SDC) | payer MEDICARE, SELFPAY ==
--- OUTSIDE RECORDS SUMMARY | 2025-04-01 10:34 | XMS_ITS | Encounter Summary ---
Author Organization [facility] Address [address] [place] [address] Care Team Providers Care Cargo Agent Name Role Phone Enrike Coronado Primary Care Provide r Reason for Referral * Imaging (Routine) - Pending Review Specialty Diagnoses / Procedures Referred By Oswaldo edwards Referred To Contact Radiology Diagnoses Other nonspecific abnormal finding of lung field Pancoast tumor, unspecified laterality (CMS/HCC V24, CMS/HCC V28) Procedures PET CT Skull to Mid Thigh Initial Audie Archer MD [address] [place] [address] Phone: tel: fax: [facility] Referral ID Status Reason Start Date Expiration Date V isits Requested Visits Authorized [id number] Pending Review 03/31/2025 03/31/2026 1 1 Reason for Visit * Imaging (Routine) - Pending Review Specialty Diagnoses / Procedures Referred By Oswaldo edwards Referred To Contact Radiology Diagnoses Other nonspecific abnormal finding of lung field Pancoast tumor, unspecified laterality (CMS/HCC V24, CMS/HCC V28) Procedures PET CT Skull to Mid Thigh Initial Audie Archer MD [address] [place] [address] Phone: tel: fax: [facility] Referral ID Status Reason Start Date Expiration Date V isits Requested Visits Authorized [id number] Pending Review 03/31/2025 03/31/2026 1 1 Encounter Details Date Type Department Care Team (Latest Contact Info) Description 04/01/2025 10:34 AM EDT Hospital Encounter [facility] PET Scan [address] [place] [address] Other nonspecific abnormal finding of lung field; Pancoast tumor, unspecified laterality (CMS/HCC V24, CMS/HCC V28) Social History Tobacco Use Types Packs/Day Years Used Date Smoking Tobacco: Every Day Cigarettes Smokeless Tobacco: Never Sex and Gender Information Value Date Recorded Sex Assigned at Not on file Legal Sex Male 7:48 PM EST Gender Identity Not on file Sexual Orientation Not on file documented as of this encounter Plan of Treatment Not on file documented as of this encounter Procedures Procedure Name Priority Date/Time Associated Diagnosis Comments PET CT SKULL TO MID THIGH INITIAL Routine 04/01/2025 12:38 PM EDT Other nonspecific abnormal finding of lung field Pancoast tumor, unspecified laterality (CMS/HCC V24, CMS/HCC V28) documented in this encounter Results * PET CT Skull to Mid Thigh Initial (04/01/2025 12:38 PM EDT) Anatomical Region Laterality Modality Body Radiographic Ronda ging 04/01/2025 1:00 PM EDT Impressions 04/01/2025 1:10 PM EDT Impression: Hypermetabolic mass at the left apex. -------- FINAL REPORT -------- Dictated By: Clementina Veliz Dictated Date: 04/01/2025 13:00 ET Assigned Physician: Clementina Veliz Reviewed and Electronically Signed By: Clementina Veliz Signed Date: 04/01/2025 13:10 ET Workstation ID: [id number] Transcribed By: Self Edit Transcribed Date: 04/01/2025 13:00 ET Narrative 04/01/2025 1:[address] Scan CLINICAL HISTORY: PANCOAST TUMOR . Technique: The patient received an intravenous injection of fluorine 18 fluorodeoxyglucose. After a short delay a whole body PET scan was obtained from the skull base through midthighs. Additionally a low dose, unenhanced CT scan was acquired for attenuation correction and anatomic localization. The CT portion of the examination was done strictly for attenuation correction and is not a true diagnostic CT examination. Total DLP: 675 mGy/cm Blood glucose level in mg/dl: 88 FDG dose in mCi: 11.7 Comparison: Findings: Head and Neck: No hypermetabolic abnormality. Chest: 1.8 cm possible extrapleural left paraspinal mass at the lung apex SUVmax = 11.75. Coronary artery calcifications. Subcentimeter nodes presumably reactive. Coronary artery calcifications. Abdomen and Pelvis: No hypermetabolic abnormality. Nonobstructing renal calculi. Hydrocele. Musculoskeletal: No hypermetabolic abnormality. Procedure Note Clementina Veliz MD - 04/01/[address] Scan CLINICAL HISTORY: PANCOAST TUMOR . Technique: The patient received an intravenous injection of fluorine 18fluorodeoxyglucose. After a short delay a whole body PET scan wasobtained from the skull base through midthighs. Additionally a low dose,unenhanced CT scan was acquired for attenuation correction and anatomiclocalization. The CT portion of the examination was done strictly forattenuation correction and is not a true diagnostic CT examination. TotalDLP: 675 mGy/cm Blood glucose level in mg/dl: 88 FDG dose in mCi: 11.7 Comparison: Findings: Head and Neck: No hypermetabolic abnormality. Chest: 1.8 cm possible extrapleural left paraspinal mass at the lung apexSUVmax = 11.75. Coronary artery calcifications. Subcentimeter nodespresumably reactive. Coronary artery calcifications. Abdomen and Pelvis: No hypermetabolic abnormality. Nonobstructing renalcalculi. Hydrocele. Musculoskeletal: No hypermetabolic abnormality. IMPRESSION: Impression: Hypermetabolic mass at the left apex. -------- FINAL REPORT -------- Dictated By: Clementina Veliz Dictated Date: 04/01/2025 13:00 ET Assigned Physician: Clementina Veliz Reviewed and Electronically Signed By: Clementina Veliz Signed Date: 04/01/2025 13:10 ET Workstation ID: [id number] Transcribed By: Self Edit Transcribed Date: 04/01/2025 13:00 ET Audie Archer MD [facility] PROCEDURES Final Result documented in this encounter Visit Diagnoses Diagnosis Other nonspecific abnormal finding of lung field Pancoast tumor, unspecified laterality (CMS/HCC V24, CMS/HCC V28) documented in this encounter Administered Medications Inactive Administered Medications - up to 3 most recent administrations Medication Order MAR Action Action Date Dose Rate Site F-18 FDG pet diag radio-isotope injection 11.7 millicurie 11.7 millicurie, intravenous, Once in imaging, Starting on Sun04/01/25 at 1115, For 1 dose Given 04/01/2025 11:03 AM EDT 11.7 millicuries Left Antecubital documented in this encounter Orders Medications Ordered That Colten ht Not Have Been Administered Count Last Ordered Date First Ordered Date F-18 FDG pet diag radio-isot ope injection 11.7 millicurie 1 04/01/2025 documented in this encounter Care Teams Cargo Agent Relationship Specialty Start Date End Date Enrike Coronado [address] [place], [place] PCP - General Internal Medicine 11/07/19 documented as of this encounter
--- OUTSIDE RECORDS SUMMARY | 2025-04-09 12:47 | XMS_ITS | Clinical Summary ---
Author Organization [employer] Address [address] [facility] 7t [place] [address] Care Team Providers Care Fur Grader Name Role Phone Enrike Coronado MD Primary Care Prov ider Allergies No known active allergies Medications Aspirin Low Dose 81 MG EC tablet Take 81 mg by mouth in the morning. 05/16/2022 Active Blood Glucose Monitoring Suppl ([employer] Verio Reflect) w/Device kit USE TO CHECK [...] THREE TIMES DAILY DIRECTED. 11/22/2021 Active Lancets ([employer] Delica Plus [id number]) misc USE TO CHECK BLOOD SUGAR 3 [...] Department Care Team Description 04/02/2025 Orders Only [facility] [address] [place], [place] [phone] Provider, MD Martínez 01/29/2025 Orders Only [facility] External Provider, [facility] 01/08/2025 10:30 AM EDT Telemedicine [facility] CHC MED & PEDS [address] [place], [place] [phone] Enrike Coronado MD Liver lesion (Primary Dx); [...] 10/12/2022, 09/14/2022, 09/14/2022 COVID-19 Vaccine ( season) 2025 08/26/2021, 10/12/2020, 09/23/2020 Influenza Vaccine (#1) 2025 [...] PM EDT Narrative 01/29/2025 5:49 PM EDT [place] [address] CT Scan Report Signed Patient: Parker Muhammad MR#: [id number] : 1955 Acct:[id number] Age/Sex: 69 / M ADM Date: 01/29/25 Loc: HO.CT Attending Dr: Corie Carmona PA-C Ordering Physician: Corie Carmona PA-C Date of Service: 01/29/25 Procedure(s): CT lung screen follow up Accession Number(s): [id number] cc: Enrike Coronado MD; Corie Carmona PA-C Report Number: [id number]: Total DLP = 68.00 mGy-cm CLINICAL HISTORY: [...] in OV> 01/29/251747 DD/ 47 TD/TT: 01/29/251747 Strategic Planning Specialist: Procedure Note Donotuseinterpreter, Image - 01/29/[address] [address] [address] Scan Report Signed Patient: Parker Muhammad [facility]#: [id number] : 4Acct:[id number] Age/Sex: 69 / MADM Date: 01/29/25 Loc: HO.CT Attending Dr: Corie Carmona PA-C Ordering Physician: Corie Carmona PA-C Date of Service: 01/29/25 Procedure(s): CT lung screen follow up Accession Number(s): [id number] cc: Enrike Coronado MD; Corie Carmona PA-C Report Number: [id number]: Total DLP = 68.00 mGy-cm CLINICAL HISTORY: [...] in OV> 01/29/251747 DD/ 47 TD/TT: 01/29/251747 Strategic Planning Specialist: us [facility] External Provider IMG CT PROCEDURES Final Result * Hemoglobin A1c (12/15/2024 10:52 AM EDT) Hemoglobin A1c 4.9 <6.0 % [facility] Comment:Hemoglobin A1C Refer ence Range Adults: 4.8 - 6.0 % Non diabetic: < 6.0 % Goal: < 7.0 %Additional Action Suggested: > 8.0 %Note: Hemoglobin A1c results are invalid for patients with abnormal amounts of HbF. Blood transfusions may impact the HbA1c concentration in the patient sample. Estimated Average Glucose 94 mg/dL [facility] Comment:eAG = Estimated ave rage glucose which is %A1C expressed asaverage glucose, using the formula of the G1T-XgpelakRtgsnzl Glucose study (ADAG), Diabetes Care, Vol.31,#8,Mar. 2007 Blood Venous blood specimen / Unknown 12/15/2024 10:52 AM EDT 12/15/2024 2:10 PM EDT us Enrike Peguero MD LAB BLOOD ORDERABL ES Final Result [facility] [address] [place] [phone] * (ABNORMAL) Lipid Panel, Standard (12/15/2024 10:52 AM EDT) Triglycerides 66 <150 mg/dL [facility] Comment:Desirable Triglyceri de: less than 150 mg/dLBorderline High Triglyceride 150-199 mg/dLHigh Triglyceride: 200-499 mg/dLVery High Triglyceride: greater than or equal to 5OO mg/dL Cholesterol 85 <200 mg/dL [facility] Comment:Desirable Cholestero l: less than 200 mg/dLBorderline High Cholesterol: 200-239 mg/dLHigh Cholesterol: greater than 239 mg/dL LDL Cholesterol Calculated 51 <100 mg/dL [facility] Comment:Desirable LDL: less than 100 mg/dLNear Optimal/Above Optimal LDL: 110- 129 mg/dLBorderline High LDL: 130-159 mg/dLHigh LDL: 160-189 mg/dLVery High LDL: greater than or equal to 190 mg/dL HDL Cholesterol 21(L) >40 mg/dL [facility] Comment:Desirable HDL: great er than 40 mg/dL Note: This HDL assay may give artificially low results in patients with liver disease. Blood Venous blood specimen / Unknown 12/15/2024 10:52 AM EDT 12/15/2024 2:10 PM EDT us Enrike Peguero MD LAB BLOOD ORDERABL ES Final Result Performing Organization Address [facility] Co de Phone Number [facility] [address] [place] [address] [phone] * ALBUMIN, RANDOM URINE W/CREATININE (11/23/2021 [...] ORDERABL ES Final Result Performing Organization Address [facility] Co de Phone Number [facility] [address] from Last 3 Months or Most Recently Relevant to Health Maintenance Insurance [facility] [place] [address] Care Teams Fur Grader Relationship Specialty Start Date End Date Enrike Coronado MD [address] [place] [phone] PCP - General Internal Medicine 09/23/19
--- OUTSIDE RECORDS SUMMARY | 2025-04-09 12:47 | XMS_ITS | Encounter Summary ---
Author Organization [employer] Address [address] [facility] 7t [place] [address] Care Team Providers Care Floor Hand Name Role Phone Enrike Coronado MD Primary Care Prov ider Encounter Details Date Type Department Care Team (Late st Contact Info) Description 12/09/2024 Orders Only [facility] [address] [place] [address] Enrike Coronado MD [address] [place] [address] Social History Tobacco Use Types Packs/Day Years [...] documented as of this encounter Care Teams Floor Hand Relationship Specialty Start Date End Date Enrike Coronado MD [address] [place] [phone] PCP - General Internal Medicine 09/23/19 documented as of this encounter
--- OUTSIDE RECORDS SUMMARY | 2025-04-09 12:47 | XMS_ITS | Encounter Summary ---
Author Organization [employer] Address [address] [facility] [address] [place] [address] Care Team Providers Care Billet Sawyer Name Role Phone Enrike Coronado MD Primary Care Prov ider Reason for Visit * Reason Onset Date Comments Request For Order(s) 08/27/2024 Encounter Details Date Type Department Care Team ([facility] st Contact Info) Description 08/27/2024 Telephone [facility] [address] [place] [address] Enrike Coronado MD [address] [place] [address] Request For Order(s) Social History Tobacco Use [...] hours from now 8:27am [facility] -[facility]- [phone] documented in this encounter Plan of Treatment Not on file documented as of this encounter Visit Diagnoses Not on filedocumented in this encounter Additional Health Concerns Assessment Noted Time PHQ-9 Depression Total Score: 2 05/29/20 24 11:39 AM EDT documented as of this encounter Care Teams Billet Sawyer Relationship Specialty Start Date End Date Enrike Coronado MD [address] [place] [phone] PCP - General Internal Medicine 09/23/19 documented as of this encounter
--- OUTSIDE RECORDS SUMMARY | 2025-04-09 12:47 | XMS_ITS | Encounter Summary ---
Author Organization [employer] Address [address] [facility] [address] [place] [address] Care Team Providers Care Instructional Materials Director Name Role Phone Enrike Coronado MD Primary Care Prov ider Reason for Visit * Reason Onset Date Comments Med Refill 11/21/2022 Encounter Details Date Type Department Care Team (Late st Contact Info) Description 11/21/2022 Telephone [facility] MED & PEDS [address] [place] [address] Enrike Coronado MD [address] [place] [address] Med Refill Social History Tobacco Use Types [...] lisinopril-hydroCHLOROthiazide 20-12.5 MG tablet Please sent to [id number] - [place], [place] - [address] documented in this encounter Plan of Treatment Not on file documented as of this encounter Visit Diagnoses Not on filedocumented in this encounter Care Teams Instructional Materials Director Relationship Specialty Start Date End Date Enrike Coronado MD [address] [place] [address] PCP - General Internal Medicine 09/23/19 documented as of this encounter
--- OUTSIDE RECORDS SUMMARY | 2025-04-09 12:47 | XMS_ITS | Encounter Summary ---
Author Organization [employer] Address [address] [facility] 7t [place] [address] Care Team Providers Care Doorperson Or Luggage Porter Name Role Phone Enrike Coronado MD Primary Care Prov ider Reason for Visit * Reason Onset Date Comments CT scan order 09/29/2024 Encounter Details Date Type Department Care Team (Late st Contact Info) Description 09/29/2024 Telephone [facility] [address] [place] [address] Enrike Coronado MD [address] [place] [phone] [address] scan order Social History Tobacco Use [...] - 09/29/2024 11:43 AM EST Tc from [facility] with [facility] informing referral that [...] documented as of this encounter Care Teams Doorperson Or Luggage Porter Relationship Specialty Start Date End Date Enrike Coronado MD [address] [place] [address] PCP - General Internal Medicine 09/23/19 documented as of this encounter
--- OUTSIDE RECORDS SUMMARY | 2025-04-09 12:47 | XMS_ITS | Encounter Summary ---
Author Organization [employer] Address [address] [facility] [address] [place] [address] Care Team Providers Care Children'S Counselor Name Role Phone Enrike Coronado MD Primary Care Prov ider Encounter Details Date Type Department Care Team (Late st Contact Info) Description 07/26/2022 Orders Only [facility] [address] [place], [place] [phone] Enrike Coronado MD [address] [place] [address] Iron deficiency (Primary Dx) Social History Tobacco [...] metabolism documented in this encounter Care Teams Children'S Counselor Relationship Specialty Start Date End Date Enrike Coronado MD [address] [place] [address] PCP - General Internal Medicine 09/23/19 documented as of this encounter
--- OUTSIDE RECORDS SUMMARY | 2025-04-09 12:47 | XMS_ITS | Clinical Summary ---
Author Organization [facility] Address [address] [place] [address] Phone Care Team Providers Care Pl Sql Developer Name Role Phone Enrike Coronado Primary Care Provide r Encounters Date Type Department Care Team Description 04/01/2025 10:34 AM EDT Hospital Encounter [facility] PET Scan [address] [place] [phone] Other nonspecific abnormal finding of [...] - Risk 3-dose series) 03/14/2023 10/12/2022, 09/14/2022 Depression Screening 08/06/2024 COVID-19 Vaccine (4 - 2024-2 6 season) 2025 08/26/2021, 10/12/2020, 09/23/2020 Influenza Vaccine (#1) 2025 Hypertension/CHF/CAD Annual BMP [...] of lung field Pancoast tumor, unspecified laterality ([facility] V24, [facility] V28) from Last 3 Months Results * [...] Signed Date: 04/01/2025 13:10 ET Workstation ID: [id number] Transcribed By: Self Edit Transcribed Date: 04/01/2025 [...] Signed Date: 04/01/2025 13:10 ET Workstation ID: [id number] Transcribed By: Self Edit Transcribed Date: 04/01/2025 13:00 ET us Audie Archer MD IMG NM PROCEDURES Final Result from Last 3 Months Insurance [employer] MEDICARE Care Teams Pl Sql Developer Relationship Specialty Start Date End Date Enrike Coronado [address] [place], [place] PCP - General Internal Medicine 11/07/19
--- OUTSIDE RECORDS SUMMARY | 2025-04-09 12:47 | XMS_ITS | Encounter Summary ---
Author Organization [employer] Address 75 [facility] 7t [place] [address] Care Team Providers Care Transition Mgr Rn Name Role Phone Enrike Coronado MD Primary Care Prov ider Encounter Details Date Type Department Care Team (Late st Contact Info) Description 04/02/2025 Orders Only [facility] [address] [place], [place] [phone] ProviderMartínez MD Social History Tobacco Use Types [...] documented as of this encounter Care Teams Transition Mgr Rn Relationship Specialty Start Date End Date Enrike Coronado MD [address] [place] [address] PCP - General Internal Medicine 09/23/19 documented as of this encounter
[2025-04-28] VITALS (14 sets, daily range): BP systolic 119–166; BP diastolic 42–71; PULSE 57–66; RESP 16–19; TEMP 36.4; O2SAT 99–100; BMI 25.8
--- NOTE | ~2025-04-28 | CT_ITS ---
PROCEDURE: CT GUIDED BIOPSY, LUNG CLINICAL INFORMATION: Bilateral apical lung nodules. COMPARISON: None available. TECHNIQUE: Following explaining CT fluoroscopy guided left apical lung nodule biopsy procedure, benefits and risk, a written consent was obtained. Patient was placed in left lateral decubitus view and preliminary CT imaging was obtained. An axial site was selected and leg markers placed along the left posterior upper chest. Repeat CT imaging was obtained. An optimal marker was selected and marked on the skin. The marked site was cleaned and draped in usual sterile manner. 1% lidocaine was administered at puncture site. Through a small skin incision a 20-gauge guide needle was advanced from the skin incision posterior to left apical nodule. Coaxially a 4 pass core biopsy was performed. Sample collected was sent in formaldehyde solution and Anirudh with saline. Post biopsy the needle was withdrawn and complete hemostasis achieved. Repeat CT imaging was performed post procedure. Simple dressing applied at the puncture site. Patient tolerated procedure extremely well. This CT examination was performed using dose optimization techniques as appropriate, variously including the following: *Automated exposure control *Adjustment of mA and/or kV according to patient size (this includes techniques or standardized protocols for targeted exams where dose is matched to indication/reason for exam; i.e. extremities or head) *Use of iterative reconstruction technique Conscious sedation was utilized during exam and patient monitored by IR nursing and IR physician. FINDINGS: Preliminary CT imaging there is there is left apical nodule and right apical pleural thickening with adjacent small pulmonary cyst. CT fluoroscopy guided coaxial 20-gauge core biopsy was performed x 4. Postbiopsy repeat CT imaging revealed trace air collection along the left needle tract into left lung apex. CT/CT biopsy lung LT IMPRESSION: Successful CT fluoroscopy guided left apical nodule biopsy performed. There were no immediate complications. A chest x-ray was to obtained an hour after the procedure. Electronically signed by: Russel Oh MD 04/28/2025 02:08 PM EDT
--- NOTE | ~2025-04-28 | XR_ITS ---
EXAMINATION: XR CHEST CLINICAL INFORMATION: Post left lung biopsy. COMPARISON: Correlation made with CT chest low dose 01/29/2025. TECHNIQUE: AP view of the chest was obtained. FINDINGS: The cardiac, hilar, and mediastinal contours are normal. Lungs demonstrate a subtle opacity in the left apex, correlating with the known small mass in this region. Lungs otherwise clear. There is a trace left apical pneumothorax, measuring approximately 4 mm in pleural separation. No focal osseous or soft tissue abnormality. XR/XR chest 1V IMPRESSION: Trace left apical pneumothorax. Electronically signed by: Chris Ford MD 04/28/2025 01:05 PM EDT
[2025-04-28 09:45] LABS: Calcium 8.9 mg/dL (8.4-10.2); Chloride 108 mmol/L (96-108); Potassium 3.9 mmol/L (3.3-5.1); Sodium 141 mmol/L (135-145)
== END 2025-04-28 13:26 | disposition home or self-care (01) ==
PROVIDERS: Radiology Diagnostic Radiology; PCP Internal Medicine; Visit Provider Internal Medicine Pulmonary Disease
DX: C34.12 Malignant neoplasm of upper lobe, left bronchus or lung (principal); R06.02 Shortness of breath; B18.2 Chronic viral hepatitis C; I10 Essential (primary) hypertension; E78.5 Hyperlipidemia, unspecified; E11.9 Type 2 diabetes mellitus without complications; D64.9 Anemia, unspecified; K21.9 Gastro-esophageal reflux disease without esophagitis; Z79.82 Long term (current) use of aspirin; Z79.899 Other long term (current) drug therapy; F17.210 Nicotine dependence, cigarettes, uncomplicated
CPT/HCPCS: 32408; 36415; 71045; 80048; 85025; 85610; 88305; 88342; 99152; J2003; J2250; J3010

== ENCOUNTER → 2025-04-28 12:42 | Outpatient (BNV) | payer MEDICARE, SELFPAY | PROVIDERS: PCP Internal Medicine; Visit Provider Radiology Diagnostic Radiology | DX: R91.1 Solitary pulmonary nodule (principal); Z48.813 Encounter for surgical aftercare following surgery on the respiratory system | CPT/HCPCS: 32408; 71045 ==

== ENCOUNTER 2025-05-04 10:46 | Outpatient (AMB) | payer MEDICARE, SELFPAY ==
--- NOTE | 2025-05-04 10:50 | A.OFFVIS_ITS ---
Vital Signs 05/04/25 10:51 Height 5 ft 11 in Weight 184 lb 1.376 oz BMI 25.7 BP 122/50 L Blood Pressure Location Rt brachial Position Sitting Pulse 64 Pulse Source Pulse Oximeter Pulse Oximetry (%) 100 Oxygen Delivery Method Room Air Intake Visit Reasons: Bx results PER- Allergies No Known Allergies Allergy (Verified 05/04/25 10:54) HPI HPI Bx results PER-: Details: Parker is a pleasant 70 year old male, current 30+ year smoker, with underlying Anemia, GERD, HTN, HLD and DMII. He was initially referred to pulmonary from the lung cancer screening program for concern of possible early pancoast tumor on screening CT chest. He was seen by Dr. Archer who ordered PET which revealed 1.8 cm FDG avid left apical/paraspinal nodule. Ultimately underwent left lung biopsy on 04/28/25 and presents today to review results. Of note, patient with intermittent dyspnea and productive cough with clear sputum. He is scheduled for PFT next month, likely with COPD given smoking history. Denies prior use of respiratory medications. [facility] Medical History (Updated 05/04/25 @ 13:08 by Kaitlin Mccarthy NP) Hepatitis C, chronic Hypertension Hyperlipidemia Diabetes GERD (gastroesophageal reflux disease) Anemia Nicotine dependence, cigarettes, uncomplicated Surgical History History of bronchoscopy Social History Household Members: Family Housing: Other Are you a primary neonatal critical care nurse to a significant other at home: No Do you presently have visiting nurse or other home services: No Patient Tobacco Use Status: Current everyday Tobacco user Tobacco use type: Cigarette Cigarettes Per Day: 11 Years Smoked: (onset 15yo, 1/2ppd x 54yrs, 27pyh) service: No Current occupational status: employed and retired Review of Systems Const Denies chills, Denies excessive sweating, Denies fever(s), Denies headache(s) and Denies night sweats Eyes Denies dry eyes, Denies irritation and Denies itchy eyes ENT Reports Normal hearing present, Denies headache(s), Denies nasal congestion, Denies nasal discharge, Denies post nasal drip and Denies sore throat Card Denies chest pain, Denies chest pain at rest, Denies chest pain with activity, Denies claudication, Denies leg edema, Denies orthopnea and Denies paroxysmal nocturnal dyspnea Resp Denies chest congestion, Denies excessive phlegm production, Denies pain on inspiration, Denies pain with cough, Denies stridor and Denies wheezing Musc Denies myalgias Neuro Reports Normal hearing present and Denies headache(s) Endo Denies excessive sweating Regan/Lymph Denies lymphadenopathy Aller/Immun Denies itchy eyes, Denies seasonal rhinorrhea and Denies wheezing Physical Exam Vital Signs: Last Vital Signs Pulse 64 05/04/25 10:51 BP 122/50 L 05/04/25 10:51 Pulse Ox 100 05/04/25 10:51 Oxygen Delivery Method Room Air 05/04/25 10:51 BMI result Body Mass Index 25.7 Const General: cooperative, healthy appearing, comfortable, no acute distress and alert Orientation/consciousness: patient oriented x3 Limitations: no limitations HEENT Head: Yes normal to inspection, Yes normocephalic and Yes atraumatic Ears: hearing grossly normal bilaterally and external ears normal Eyes General: appearance normal, both eyes and all related structures Eyelids: Yes eyelids normal Sclerae: sclerae normal EOM: EOMs intact bilaterally Neck Neck: Yes normal visual inspection and Yes no lymphadenopathy Lymphatic: no lymphadenopathy noted Chest Chest palpation & inspection: normal inspection of the chest Resp Effort & Inspection: normal respiratory effort, able to speak in complete sentences, no audible wheezes, no cough, no stridor, not tachypneic, no tripod positioning and no use of accessory muscles Auscultation: diminished lung sounds Cardio Jugular venous distension: no JVD Rate: regular rate Rhythm: regular rhythm Skin Other: warm, dry General skin exam: no rashes or lesions noted Neuro General: patient oriented x3 Cranial nerves: Yes Normal hearing present Cognition (Neuro): normal cognition Gait exam (Neuro): Normal gait present Extrem General: Yes normal to inspection, Yes capillary refill normal, Yes no clubbing, cyanosis or edema and Yes no pedal edema Psych Appearance: grossly normal and well kempt Speech and movement: Normal speech and movement present and Clear speech present Affect: normal affect Attitude: cooperative Thought process: Normal thought process present Thought content: Normal thought content present Insight: Good insight present (Psych) Judgement: Good judgement present (Psych) Assessment & Plan Assessment & Plan (1) Squamous cell carcinoma of left lung: Code(s): C34.92 - Malignant neoplasm of unspecified part of left bronchus or lung Category: Medical (2) Pulmonary nodule 1 cm or greater in diameter: Code(s): R91.1 - Solitary pulmonary nodule Category: Medical (3) Dyspnea on exertion: Code(s): R06.09 - Other forms of dyspnea Category: Medical (4) Nicotine dependence, cigarettes, uncomplicated: Code(s): F17.210 - Nicotine dependence, cigarettes, uncomplicated Category: Medical Plan Reviewed pathology with patient which was consistent with squamous cell carcinoma. He is established with Dr. Johnson for SILAS and has follow up scheduled on 05/22. Will inform Dr. Johnson of recent pathology and plan to see patient prior. He has upcoming PFT scheduled 05/26, likely with COPD and reports intermittent dyspnea in addition to productive cough. Will empirically trial Combivent PRN. Patient is aware to call if symptoms are not well controlled. All questions were answered and patient is in agreement of plan. Will follow up with Dr. Archer in 6-8 weeks or sooner if needed. Medications: New ipratropium-albuterol 20-100 mcg/actuation (Combivent Respimat) 1 puff inhalation Q6H 4 grams 0RF J44.9 - Chronic obstructive pulmonary disease, unspecified Coding Level of Care Code Est Pt Level 4 (83786) Complex EM visit Add On G2211 Diagnoses Squamous cell carcinoma of left lung C34.92 Pulmonary nodule 1 cm or greater in diameter R91.1 Dyspnea on exertion R06.09 Nicotine dependence, cigarettes, uncomplicated F17.210
[2025-05-04 10:51] VITALS: BP 122/50; PULSE 64; O2SAT 100; BMI 25.7
--- OUTSIDE RECORDS SUMMARY | 2025-05-04 12:17 | XMS_ITS | Clinical Summary ---
Author Organization [facility] Address [address] [place] [address] Phone Care Team Providers Care Heel Pricker Name Role Phone Enrike Coronado Primary Care Provide r Encounters Date Type Department Care Team Description 04/01/2025 10:34 AM EDT - 04/01/2025 11:59 PM EDT Hospital Encounter [facility] PET Scan [address] [place] [address] Other nonspecific abnormal finding of [...] of lung field Pancoast tumor, unspecified laterality (CMS/[facility] V24, CMS/[facility] V28) from Last 3 Months Results [...] Signed Date: 04/01/2025 13:10 ET Workstation ID: [id number] Transcribed By: Self Edit Transcribed Date: 04/01/2025 [...] Veliz Reviewed and Electronically Signed By: Clementina eVliz Signed Date: 04/01/2025 13:10 ET Workstation ID: [id number] Transcribed By: Self Edit Transcribed Date: 04/01/2025 13:00 ET us Audie Archer MD IMG NM PROCEDURES Final Result from Last 3 Months Insurance [employer] MEDICARE Care Teams Heel Pricker Relationship Specialty Start Date End Date Enrike Coronado [address] [place] [address] PCP - General Internal Medicine 11/07/19
--- OUTSIDE RECORDS SUMMARY | 2025-05-04 12:17 | XMS_ITS | Encounter Summary ---
Author Organization [employer] Address [address] [facility] [address] [place] [address] Care Team Providers Care Button Sawyer Name Role Phone Enrike Coronado MD Primary Care Prov ider Reason for Visit * Reason Onset Date Comments Request For Order(s) 08/27/2024 Encounter Details Date Type Department Care Team ([facility] st Contact Info) Description 08/27/2024 Telephone [facility] [address] [place] [address] Enrike Coronado MD [address] [place] [address] Request For Order(s) Social History Tobacco Use [...] hours from now 8:27am [facility] -Chris- [phone] documented in this encounter Plan of Treatment Not on file documented as of this encounter Visit Diagnoses Not on filedocumented in this encounter Additional Health Concerns Assessment Noted Time PHQ-9 Depression Total Score: 2 05/29/20 24 11:39 AM EDT documented as of this encounter Care Teams Button Sawyer Relationship Specialty Start Date End Date Enrike Coronado MD [address] [place] [phone] PCP - General Internal Medicine 09/23/19 documented as of this encounter
--- OUTSIDE RECORDS SUMMARY | 2025-05-04 12:17 | XMS_ITS | Clinical Summary ---
Author Organization [employer] Address [address] [facility] 7t [place] [address] Care Team Providers Care Paper Goods Machine Set Up Operator Name Role Phone Enrike Coronado MD Primary Care Prov ider Allergies No known active allergies Medications Aspirin Low Dose 81 MG EC tablet Take 81 mg by mouth in the morning. 05/16/2022 Active Blood Glucose Monitoring Suppl (iMusicianTouch Verio Reflect) w/Device kit USE TO CHECK [...] THREE TIMES DAILY DIRECTED. 11/22/2021 Active Lancets (iMusicianTouch Delica Plus [id number]) misc USE TO CHECK BLOOD SUGAR 3 [...] Encounters Date Type Department Care Team Description 04/28/2025 Orders Only GENERIC EXTERNAL DATA DEPARTMENT Provider, Generic External Data 04/02/2025 Orders Only [facility] Information Management [address] [place] [phone] Provider, MD Martínez from Last 3 Months Immunizations Immunization Administration [...] Procedure Name Priority Date/Time Associated Diagnosis Comments XR CHEST 1 VIEW Routine 04/28/2025 12:36 PM EDT GROSS AND MICROSCOPIC LEVEL 4 Routine 04/28/2025 11:[address] BIOPSY LUNG LEFT Routine 04/28/2025 1 0:36 AM EDT BASIC METABOLIC PANEL Routine 04/28/2025 9:28 AM EDT CBC WITH AUTO DIFFERENTIAL Routine 04/28/2025 9:28 AM EDT PROTHROMBIN TIME-INR Routine 04/28/2025 9:28 AM EDT PET/CT BONE SKULL BASE TO MID THIGH Routine 04/01/2025 2:24 PM EDT HEMOGLOBIN A1C Routine 12/15/2024 10:52 AM EDT Primary hypertension LIPID PANEL, STANDARD Routine 12/15/2024 10:52 AM EDT Primary hypertension ALBUMIN, RANDOM URINE W/CREATININE Routine 11/23/2021 10:00 AM EDT from Last 3 Months or Most Recently Relevant to Health Maintenance Results * XR Chest 1 View (04/28/2025 12:36 PM EDT) Anatomical Region Laterality Modality Chest Radiographic Ronda ging 04/28/2025 12:3 6 PM EDT Narrative 04/28/2025 1:07 PM EDT [place] [address] XRay Report Signed Patient: Parker Muhammad MR#: [id number] 0545 : 1955 Acct:[id number] Age/Sex: 70 / M ADM Date: 04/28/25 Loc: HO.[facility] Attending Dr: Audie Archer MD Ordering Physician: Russel Oh MD Date of Service: 04/28/25 Procedure(s): XR chest 1V Accession Number(s): [id number] cc: Enrike Coronado MD; Russel Oh MD Reason for Exam: post thora EXAMINATION: XR CHEST CLINICAL INFORMATION: Post left lung biopsy. COMPARISON: Correlation made with CT chest low dose 01/29/2025. TECHNIQUE: AP view of the chest was obtained. FINDINGS: The cardiac, hilar, and mediastinal contours are normal. Lungs demonstrate a subtle opacity in the left apex, correlating with the known small mass in this region. Lungs otherwise clear. There is a trace left apical pneumothorax, measuring approximately 4 mm in pleural separation. No focal osseous or soft tissue abnormality. XR/XR chest 1V IMPRESSION: Trace left apical pneumothorax. Electronically signed by: Chris Ford MD 04/28/2025 01:05 PM EDT RP Dictated By: Chris Ford MD Signed By: <Electronically signed by Chris Ford MD in OV> 04/28/25 1305 DD/ 1236 TD/TT: 04/28/25 1253 General Teller: Procedure Note Donotuseinterpreter, Image - 04/28/[address] [address] XRay Report Signed Patient: Parker Muhammad DMR#: [id number] 0545 : 4Acct:[id number] Age/Sex: 70 / MADM Date: 04/28/25 Loc: .[facility] Attending Dr: Audie Archer MD Ordering Physician: Russel Oh MD Date of Service: 04/28/25 Procedure(s): XR chest 1V Accession Number(s): [id number] cc: Enrike Coronado MD; Russel Oh MD Reason for Exam: post thora EXAMINATION: XR CHEST CLINICAL INFORMATION: Post left lung biopsy. COMPARISON: Correlation made with CT chest low dose 01/29/2025. TECHNIQUE: AP view of the chest was obtained. FINDINGS: The cardiac, hilar, and mediastinal contours are normal. Lungs demonstrate a subtle opacity in the left apex, correlating with the known small mass in this region. Lungs otherwise clear. There is a trace left apical pneumothorax, measuring approximately 4 mm in pleural separation. No focal osseous or soft tissue abnormality. XR/XR chest 1V IMPRESSION: Trace left apical pneumothorax. Electronically signed by: Chris Ford MD 04/28/2025 01:05 PM EDT RP Dictated By: Chris Ford MD Signed By: <Electronically signed by Chris Ford MD in OV> 04/28/25 1305 DD/ 1236 TD/TT: 04/28/25 1253 General Teller: [facility] External Provider IMG XR PROCEDURES Final Result * Gross and Microscopic Level 4 (04/28/2025 11:04 AM EDT) 04/28/2025 11:0 4 AM EDT 04/28/2025 12:39 PM EDT [facility] LABS - 05/01/2025 8:19 AM EDT ----- ------- Name: Parker Muhammad Age/Sex: 70/M : 1955 Unit#: [id number] Attend Dr: Audie Archer MD Re04/28/25 Status: [facility] Location: [facility] Disch: ----- ------- SPEC : [id number] RECD: 04/28/25-1239 STATUS: SCOTT ESCOBAR NUM: [id number] INGA: 04/28/25-1104 [facility] DR: Russel Oh MD ENTERED: 04/28/25-1249 SP TYPE: Surgical OTHR DR: Enrike Coronado MD, Andrey MD ORDERED: Gross Micro L4/2, Synaptophysin, IHC/5, CK7, CK20, p40, TTF-1 Diagnosis A. Lung, left upper/apical nodule, core biopsy: Squamous cell carcinoma, moderately differentiated. B. Lung, left upper/apical nodule, core biopsy: Pleural scar with reactive changes; negative for malignancy. COMMENT: The immunohistochemical stain profile supports the above diagnosis. Molecular studies have been ordered and results will be reported in an addendum. Clinical History Pre-Op Dx: Garth upper lobe nodules Post-Op Dx: Nodule Microscopic Description A. Sections of the left lung biopsy demonstrate solid nests of tumor cells with moderate amphophilic cytoplasm and moderately pleomorphic nuclei with prominent nucleoli. Necrosis is present. Immunostains show the tumor cells to be positive for p40 while negative for TTF1, CK7, CK20 and synaptophysin. The morphologic features and immunohistochemical stain profile support a squamous cell carcinoma. B. Sections show pleural parenchyma with fibrosis and adipose tissue. There is no evidence of malignancy. Material Received A. Left atypical nodule B. Left atypical nodule Gross Description Received in 2 parts. A. Received in formalin labeled OVIDIO lung mass is a cylindrical portion of pink white soft tissue measuring 0.7 cm in length with a diameter of 0.02 cm which is wrapped in lens paper and entirely submitted for microscopic examination, 1 piece in cassette A. B. Received fresh, on Telfa, on ice labeled OVIDIO lung mass are 5 cylindrical portions of baer-white soft tissue ranging from 0.3-0.7 cm in length, all with a diameter of 0.02 cm which are entirely submitted for microscopic examination, 2 pieces in cassette B1 and 3 CONTINUED ON NEXT PAGE ----- ------- Name: LuiscandidaParker Age/Sex: 70/M : 1955 Unit#: [id number] Attend Dr: Audie Archer MD Re04/28/25 Status: [facility] Location: [facility] Disch: ----- ------- SPEC : [id number] RECD: 04/28/25 STATUS: SCOTT ESCOBAR NUM: [id number] INGA: 04/28/25 [facility] [address]: Russel Oh MD ENTERED: 04/28/25 SP TYPE: Surgical OTHR DR: Enrike Coronado MD,Audie FUNEZ ORDERED: Gross Micro L4/2, Synaptophysin, IHC/5, CK7, CK20, p40, TTF-1 Gross Description (Continued) pieces in cassette B2. ([facility]) This case was reviewed intradepartmentally. Special stains ordered and performed: Immunostains for p40, TTF, CK7, CK20 and synaptophysin on A1. IHC S/NG Disclaimer NOTE: Unless otherwise stated, all tissue is formalin-fixed and paraffin-embedded. Some or all of the immunohistochemical tests reported herein may have been developed and their performance characteristics determined by [facility]. They have not been cleared or approved by the U.S. Food and Drug Administration (FDA). However, the FDA has determined that such clearance or approval is not necessary. This laboratory is certified under the Clinical Laboratory Improvement Amendments of 1988 (CLIA) as qualified to perform high complexity clinical laboratory testing. Copies To: Enrike Coronado MD [address] [phone] Russel Oh MD [address] [place] [address] [phone] Audie Archer MD [facility] [address] [place] [address] [phone] ----- ------- Signed (signature on file) Temitope Griffith MD 05/01/25 0819 ----- ------- END OF REPORT us Generic External Data Provider LAB CYTOLOGY CATALINAClary PENALOZABECKY Final Result [facility] [address] [place] [phone] * CT Biopsy Lung Left (04/28/2025 10:36 AM EDT) Anatomical Region Laterality Modality Computed Tomogra phy 04/28/2025 10:3 6 AM EDT Narrative 04/28/2025 2:10 PM EDT [address] [address] [address] Scan Report Signed Patient: Parker Muhammad MR#: [id number] 0545 : 1955 Acct:[id number] Age/Sex: 70 / M ADM Date: 04/28/25 Loc: [facility] Attending Dr: Audie Archer MD Ordering Physician: Audie Archer MD Date of Service: 04/28/25 Procedure(s): CT biopsy lung LT Accession Number(s): [id number] cc: Enrike Coronado MD; Audie Archer MD Report Number: [id number]: Total DLP = 232.00 mGy-cm Reason for Exam: R91.1 - Solitary pulmonary nodule PROCEDURE: CT GUIDED BIOPSY, LUNG CLINICAL INFORMATION: Bilateral apical lung nodules. COMPARISON: None available. TECHNIQUE: Following explaining CT fluoroscopy guided left apical lung nodule biopsy procedure, benefits and risk, a written consent was obtained. Patient was placed in left lateral decubitus view and preliminary CT imaging was obtained. An axial site was selected and leg markers placed along the left posterior upper chest. Repeat CT imaging was obtained. An optimal marker was selected and marked on the skin. The marked site was cleaned and draped in usual sterile manner. 1% lidocaine was administered at puncture site. Through a small skin incision a 20-gauge guide needle was advanced from the skin incision posterior to left apical nodule. Coaxially a 4 pass core biopsy was performed. Sample collected was sent in formaldehyde solution and Anirudh with saline. Post biopsy the needle was withdrawn and complete hemostasis achieved. Repeat CT imaging was performed post procedure. Simple dressing applied at the puncture site. Patient tolerated procedure extremely well. This CT examination was performed using dose optimization techniques as appropriate, variously including the following: *Automated exposure control *Adjustment of mA and/or kV according to patient size (this includes techniques or standardized protocols for targeted exams where dose is matched to indication/reason for exam; i.e. extremities or head) *Use of iterative reconstruction technique Conscious sedation was utilized during exam and patient monitored by IR nursing and IR physician. FINDINGS: Preliminary CT imaging there is there is left apical nodule and right apical pleural thickening with adjacent small pulmonary cyst. CT fluoroscopy guided coaxial 20-gauge core biopsy was performed x 4. Postbiopsy repeat CT imaging revealed trace air collection along the left needle tract into left lung apex. CT/CT biopsy lung LT IMPRESSION: Successful CT fluoroscopy guided left apical nodule biopsy performed. There were no immediate complications. A chest x-ray was to obtained an hour after the procedure. Electronically signed by: Russel Oh MD 04/28/2025 02:08 PM EDT Dictated By: Russel Oh MD Signed By: <Electronically signed by Russel Oh MD in OV> 04/28/25 1408 DD/ 1036 TD/TT: 04/28/25 1138 General Teller: [facility] Procedure Note Donotuseinterpreter, Image - 04/28/[address] [address] [address] Scan Report Signed Patient: Parker Muhammad [facility]#: [id number] 0545 : 4Acct:[id number] Age/Sex: 70 / MADM Date: 04/28/25 Loc: .[facility] Attending Dr: Audie Archer MD Ordering Physician: Audie Archer MD Date of Service: 04/28/25 Procedure(s): CT biopsy lung LT Accession Number(s): [id number] cc: Enrike Coronado MD; Audie Archer MD Report Number: [id number]: Total DLP = 232.00 mGy-cm Reason for Exam: R91.1 - Solitary pulmonary nodule PROCEDURE: CT GUIDED BIOPSY, LUNG CLINICAL INFORMATION: Bilateral apical lung nodules. COMPARISON: None available. TECHNIQUE: Following explaining CT fluoroscopy guided left apical lung nodule biopsy procedure, benefits and risk, a written consent was obtained. Patient was placed in left lateral decubitus view and preliminary CT imaging was obtained. An axial site was selected and leg markers placed along the left posterior upper chest. Repeat CT imaging was obtained. An optimal marker was selected and marked on the skin. The marked site was cleaned and draped in usual sterile manner. 1% lidocaine was administered at puncture site. Through a small skin incision a 20-gauge guide needle was advanced from the skin incision posterior to left apical nodule. Coaxially a 4 pass core biopsy was performed. Sample collected was sent in formaldehyde solution and Anirudh with saline. Post biopsy the needle was withdrawn and complete hemostasis achieved. Repeat CT imaging was performed post procedure. Simple dressing applied at the puncture site. Patient tolerated procedure extremely well. This CT examination was performed using dose optimization techniques as appropriate, variously including the following: *Automated exposure control *Adjustment of mA and/or kV according to patient size (this includes techniques or standardized protocols for targeted exams where dose is matched to indication/reason for exam; i.e. extremities or head) *Use of iterative reconstruction technique Conscious sedation was utilized during exam and patient monitored by IR nursing and IR physician. FINDINGS: Preliminary CT imaging there is there is left apical nodule and right apical pleural thickening with adjacent small pulmonary cyst. CT fluoroscopy guided coaxial 20-gauge core biopsy was performed x 4. Postbiopsy repeat CT imaging revealed trace air collection along the left needle tract into left lung apex. CT/CT biopsy lung LT IMPRESSION: Successful CT fluoroscopy guided left apical nodule biopsy performed. There were no immediate complications. A chest x-ray was to obtained an hour after the procedure. Electronically signed by: Russel Oh MD 04/28/2025 02:08 PM EDT Dictated By: Russel Oh MD Signed By: <Electronically signed by Russel Oh MD in OV> 04/28/25 1408 DD/ 1036 TD/TT: 04/28/25 1138 General Teller: VISHAL [facility] External Provider IMG CT PROCEDURES Final Result * (ABNORMAL) CBC auto differential (04/28/2025 9:28 AM EDT) White Blood Count 9.1 4.8 - 10.8 X10*3/uL [facility] Red Blood Count 3.53(L) 4.60 - 5.80 X10*6/uL [facility] Hemoglobin 10.7(L) 14.0 - 18.0 g/dl [facility] Hematocrit 33.2(L) 42.0 - 52.0 % [facility] Mean Corpuscular Volume 94.1 80.0 - 98.0 fL [facility] Mean Corpuscular Hemoglobin 30.3 27.0 - 33.0 pg [facility] Mean Corpuscular HGB Conc 32.2 31.0 - 36.0 g/dl [facility] Red Cell Distribution Width 16.3(H) 11.0 - 16.0 % [facility] Platelet Count 340 160 - 400 X10*3/uL [facility] Mean Platelet Volume 10.7 9.4 - 12.4 fL [facility] Neutrophils Percent Auto 68.8 45 - 73 % [facility] Imm Gran Pct Auto 0.3 0.0 - 0.4 % [facility] Lymphocytes Percent Auto 17.5(L) 20 - 40 % [facility] Monocytes Percent Auto 10.5 2 - 11 % [facility] Eosinophils Percent Auto 2.5 0 - 4 % [facility] Basophils Percent Auto 0.4 0 - 2 % [facility] NRBC Pct Auto 0.0 0.0 - 0.2 /100WBC [facility] Neutrophils Absolute Auto 6.2 2.0 - 8.3 x10*3/uL [facility] Imm Gran Abs Auto 0.03 0.00 - 0.03 X10*3/uL [facility] Lymphocytes Absolute Auto 1.6 1.2 - 4.9 X10*3/uL [facility] Monocytes Absolute Auto 1.0 0.1 - 1.2 X10*3/uL [facility] Eosinophils Absolute Auto 0.2 0.0 - 0.4 X10*3/uL [facility] Basophils Absolute Auto 0.0 0.0 - 0.2 X10*3/uL [facility] NRBC Abs Auto 0.000 0.0 - 0.012 X10*3/uL [facility] 04/28/2025 9:28 AM EDT 04/28/2025 9:30 AM EDT us Generic External Data Provider LAB BLOOD ORDERAB LES Final Result Performing Organization Address [facility] de Phone Number [facility] [address] [place] [phone] * Prothrombin Time-INR (04/28/2025 9:28 AM EDT) Prothrombin Time 11.1 10.9 - 12.4 SEC [facility] INTERNATIONAL NORM RATIO 1.0 0.9 - 1.1 [facility] Comment:INTERNATIONAL NORMAL IZED RATIO (INR) REFERENCE RANGES Reference RangeFor patients not on anticoagulant therapy: 0.9 - 1.1INR ranges for oral anticoagulanttherapy:For prevention and treatment of venous thrombosis and pulmonary embolism: 2.0 - 3.0For acute myocardial infarction with aspirin therapy: 2.0 - 3.0For acute myocardial infarction without aspirin therapy: 3.0 - 4.0For patients with mechanical prosthetic heart valves: 2.5 - 3.5 04/28/2025 9:28 AM EDT 04/28/2025 9:30 AM EDT us Generic External Data Provider LAB BLOOD ORDERAB LES Final Result Performing Organization Address [facility] de Phone Number [facility] [address] [place] [phone] * (ABNORMAL) Basic Metabolic Panel (04/28/2025 9:28 AM EDT) Sodium 141 135 - 145 mmol/L [facility] Potassium 3.9 3.3 - 5.1 mmol/L [facility] Chloride 108 96 - 108 mmol/L [facility] Carbon Dioxide 27 22 - 29 mmol/L [facility] Anion Gap 10(L) 12 - 20 [facility] Urea Nitrogen (BUN) 15 9 - 16 mg/dL [facility] Creatinine, Serum 1.28 0.5 - 1.4 mg/dL [facility] Creatinine Clr Calc Pharmacy 56.3 [facility] Comment:eGFR (calculated fro m the MDRD study equation) and eCrCl(calculated from the Cockcroft-Gault equation) are based ondifferent parameters and may not yield comparable results.If eCrCl result is absurd, please check patient'sheight/weight. Estimated Glomerular Filt Rate 55 [facility] Comment:Chronic Kidney Disea se: Estimated GFR < 60 mL/min/1.57c9Xynuek Kidney Disease: Estimated GFR < 15 mL/min/1.73m2 Glucose 89 60 - 115 mg/dL [facility] Calcium 8.9 8.4 - 10.2 mg/dL [facility] 04/28/2025 9:28 AM EDT 04/28/2025 9:30 AM EDT us Generic External Data Provider LAB BLOOD ORDERAB LES Final Result [facility] [address] [place] [phone] * PET/CT Bone Skull Base to Mid Thigh (04/01/2025 2:24 PM EDT) Anatomical Region Laterality Modality Body Computed Tomogra phy us Historical Provider MD LYN CT PROCEDURES Final R esult * Hemoglobin A1c (12/15/2024 10:52 AM EDT) Hemoglobin A1c 4.9 <6.0 % [facility] Comment:Hemoglobin A1C Refer ence Range Adults: 4.8 - 6.0 % Non diabetic: < 6.0 % Goal: < 7.0 %Additional Action Suggested: > 8.0 %Note: Hemoglobin A1c results are invalid for patients with abnormal amounts of HbF. Blood transfusions may impact the HbA1c concentration in the patient sample. Estimated Average Glucose 94 mg/dL [facility] Comment:eAG = Estimated ave rage glucose which is %A1C expressed asaverage glucose, using the formula of the F9O-XppwsenAdeukjq Glucose study (ADAG), Diabetes Care, Vol.31,#8,Mar. 2007 Blood Venous blood specimen / Unknown 12/15/2024 10:52 AM EDT 12/15/2024 2:10 PM EDT Enrike Peguero MD LAB BLOOD ORDERABL ES Final Result [facility] [address] [place] [phone] * (ABNORMAL) Lipid Panel, Standard (12/15/2024 10:52 AM EDT) Triglycerides 66 <150 mg/dL [facility] Comment:Desirable Triglyceri de: less than 150 mg/dLBorderline High Triglyceride 150-199 mg/dLHigh Triglyceride: 200-499 mg/dLVery High Triglyceride: greater than or equal to 5OO mg/dL Cholesterol 85 <200 mg/dL [facility] Comment:Desirable Cholestero l: less than 200 mg/dLBorderline High Cholesterol: 200-239 mg/dLHigh Cholesterol: greater than 239 mg/dL LDL Cholesterol Calculated 51 <100 mg/dL [facility] Comment:Desirable LDL: less than 100 mg/dLNear Optimal/Above Optimal LDL: 110- 129 mg/dLBorderline High LDL: 130-159 mg/dLHigh LDL: 160-189 mg/dLVery High LDL: greater than or equal to 190 mg/dL HDL Cholesterol 21(L) >40 mg/dL [facility] Comment:Desirable HDL: great er than 40 mg/dL Note: This HDL assay may give artificially low results in patients with liver disease. Blood Venous blood specimen / Unknown 12/15/2024 10:52 AM EDT 12/15/2024 2:10 PM EDT us Enrike Peguero MD LAB BLOOD ORDERABL ES Final Result Performing Organization Address City/[facility]/ZIP Co de Phone Number [facility] [address] [place] [phone] * ALBUMIN, RANDOM URINE W/CREATININE (11/23/2021 [...] ORDERABL ES Final Result Performing Organization Address City/[facility]/ZIP Co de Phone Number [facility] [address] from Last 3 Months or Most Recently Relevant to Health Maintenance Insurance [facility] MEDICARE REPLACEMENT Care Teams Paper Goods Machine Set Up Operator Relationship Specialty Start Date End Date Enrike Coronado MD [address] [place] [phone] PCP - General Internal Medicine 09/23/19
--- OUTSIDE RECORDS SUMMARY | 2025-05-04 12:17 | XMS_ITS | Encounter Summary ---
Author Organization [employer] Address [address] [facility] [address] [place] [address] Care Team Providers Care Manager Mall Name Role Phone Enrike Coronado MD Primary Care Prov ider Reason for Visit * Reason Onset Date Comments Med Refill 11/21/2022 Encounter Details Date Type Department Care Team (Late st Contact Info) Description 11/21/2022 Telephone [facility] [address] [place] [address] Enrike Coronado MD [address] [place] [address] Med Refill Social History Tobacco Use Types [...] lisinopril-hydroCHLOROthiazide 20-12.5 MG tablet Please sent to [id number] - [place], [place] - [address] documented in this encounter Plan of Treatment Not on file documented as of this encounter Visit Diagnoses Not on filedocumented in this encounter Care Teams Manager Mall Relationship Specialty Start Date End Date Enrike Coronado MD [address] [place] [phone] PCP - General Internal Medicine 09/23/19 documented as of this encounter
--- OUTSIDE RECORDS SUMMARY | 2025-05-04 12:17 | XMS_ITS | Encounter Summary ---
Author Organization [employer] Address [address] [facility] 7t [place] [address] Care Team Providers Care Production Specialist Name Role Phone Enrike Coronado MD Primary Care Prov ider Encounter Details Date Type Department Care Team (Late st Contact Info) Description 12/09/2024 Orders Only [facility] MEDICINE [address] [place] [address] Enrike Coronado MD [address] [place] [address] Social History Tobacco Use Types Packs/Day Years [...] documented as of this encounter Care Teams Production Specialist Relationship Specialty Start Date End Date Enrike Coronado MD [address] [place] [address] PCP - General Internal Medicine 09/23/19 documented as of this encounter
--- OUTSIDE RECORDS SUMMARY | 2025-05-04 12:17 | XMS_ITS | Encounter Summary ---
Author Organization [employer] Address [address] [facility] 7t [place] [address] Care Team Providers Care Data Compiler Name Role Phone Enrike Coronado MD Primary Care Prov ider Reason for Visit * Reason Onset Date Comments CT scan order 09/29/2024 Encounter Details Date Type Department Care Team (Late st Contact Info) Description 09/29/2024 Telephone [facility] MEDICINE [address] [place] [address] Enrike Coronado MD [address] [place] [phone] [address] scan order Social History Tobacco Use [...] - 09/29/2024 11:43 AM EST Tc from [facility] with [facility] informing referral [...] documented as of this encounter Care Teams Data Compiler Relationship Specialty Start Date End Date Enrike Coronado MD [address] [place] [address] PCP - General Internal Medicine 09/23/19 documented as of this encounter
--- OUTSIDE RECORDS SUMMARY | 2025-05-04 12:17 | XMS_ITS | Encounter Summary ---
Author Organization [employer] Address [address] [facility] [address] [place] [address] Care Team Providers Care Drug Department Worker Name Role Phone Enrike Coronado MD Primary Care Prov ider Encounter Details Date Type Department Care Team (Late st Contact Info) Description 07/26/2022 Orders Only [facility] MEDICINE [address] [place], [place] [phone] Enrike Coronado MD [address] [place] [address] Iron deficiency (Primary Dx) Social History Tobacco [...] metabolism documented in this encounter Care Teams Drug Department Worker Relationship Specialty Start Date End Date Enrike Coronado MD [address] [place] [address] PCP - General Internal Medicine 09/23/19 documented as of this encounter
--- OUTSIDE RECORDS SUMMARY | 2025-05-04 12:17 | XMS_ITS | Encounter Summary ---
Author Organization [employer] Address 75 [facility] 7t [place] [address] Care Team Providers Care Tool Specialist Name Role Phone Enrike Coronado MD Primary Care Prov ider Encounter Details Date Type Department Care Team (Late st Contact Info) Description 04/02/2025 Orders Only [facility] [address] [place], [place] [phone] ProviderMartínez MD Social History Tobacco Use Types [...] documented as of this encounter Care Teams Tool Specialist Relationship Specialty Start Date End Date Enrike Coronado MD [address] [place] [address] PCP - General Internal Medicine 09/23/19 documented as of this encounter
== END 2025-05-04 11:46 | disposition home or self-care (01) ==
LOC: HO.HPS 10:46
PROVIDERS: PCP Internal Medicine; Visit Provider Nurse Practitioner Family
DX: C34.92 Malignant neoplasm of unspecified part of left bronchus or lung (principal); R91.1 Solitary pulmonary nodule; R06.09 Other forms of dyspnea; F17.210 Nicotine dependence, cigarettes, uncomplicated
CPT/HCPCS: 99214; G2211

== ENCOUNTER → 2025-05-04 10:46 | Outpatient (BNVA) | payer MEDICARE, SELFPAY | PROVIDERS: PCP Internal Medicine; Visit Provider Nurse Practitioner Family | DX: Z71.2 Person consulting for explanation of examination or test findings (principal); C34.92 Malignant neoplasm of unspecified part of left bronchus or lung; R91.1 Solitary pulmonary nodule; R06.09 Other forms of dyspnea; F17.210 Nicotine dependence, cigarettes, uncomplicated | CPT/HCPCS: 99212 ==

== ENCOUNTER 2025-05-29 09:47 | Outpatient (REF) | payer MEDICARE, SELFPAY ==
--- NOTE | 2025-05-29 10:11 | PFT_ITS ---
Indication tobacco dependency Spirometry FEV1 to FVC 72%; FEV1 2.75 L; FVC 3.81 L. No significant response to bronchodilators noted. Lung Volumes Total lung capacity 84% predicted Diffusion Capacity DLCO 57% predicted Methacholine Challenge [] Flow Volume Loops Concavity in the expiratory limb suggesting an obstructive physiology MVV 91% predicted Comparisons None Interpretation No definitive obstructive nor restrictive ventilatory defects identified. However, the patient does have an obstructive physiology based on his flow volume loop and also based on his FEV1 to FVC ratio. Lung volumes within normal limits. The patient does have a moderate diffusion impairment likely secondary to emphysematous changes and or other parenchymal lung conditions should be considered. Clinical correlation warranted. MTDD
[2025-05-29 10:50] VITALS: PULSE 57
--- OUTSIDE RECORDS SUMMARY | 2025-05-29 11:00 | XMS_ITS | Encounter Summary ---
Author Organization [employer] Address [address] [facility] 7t [place] [address] Care Team Providers Care Digital Designer Name Role Phone Enrike Coronado MD Primary Care Prov ider Encounter Details Date Type Department Care Team (Late st Contact Info) Description 04/02/2025 Orders Only [facility] [address] [place], [place] [phone] ProviderMartínez MD Social History Tobacco Use Types [...] Care Team (Late st Contact Info) Description 06/25/2025 11:15 AM EST Office Visit [facility] CHC MED & PEDS [address] [place], [place] [phone] Enrike Coronado MD [address] [place] [address] documented as of this encounter Procedures Procedure [...] documented as of this encounter Care Teams Digital Designer Relationship Specialty Start Date End Date Enrike Coronado MD [address] [place] [address] PCP - General Internal Medicine 09/23/19 documented as of this encounter
--- OUTSIDE RECORDS SUMMARY | 2025-05-29 11:00 | XMS_ITS | Clinical Summary ---
Author Organization [facility] Address [address] [place] [address] Phone Care Team Providers Care Thermal Cutter Helper Name Role Phone Enrike Coronado Primary Care Provide r Encounters Date Type Department Care Team Description 04/01/2025 10:34 AM EDT - 04/01/2025 11:59 PM EDT Hospital Encounter [facility] PET Scan [address] [place] [address] Other nonspecific abnormal finding of [...] Health Maintenance Due Date Last Done Comments Colorectal Cancer Screening: Colonoscopy 1954 DTaP,Tdap,and Td Vaccines (1 - Tdap) 1973 Pneumococcal Vaccine: 50+ Years (1 of 2 - PCV) 1973 Zoster Vaccines (1 of 2) 1973 RSV Immunization Adult Patients (1 - Risk 50-74 years 1-dose series) 2004 Abdominal Aortic Aneurysm (AAA) Screen 07/16/2022 Falls Risk Assessment 07/16/2022 Hepatitis C [...] of lung field Pancoast tumor, unspecified laterality (CMS/[facility] V24, CMS/[facility] V28) from Last 3 Months [...] Signed Date: 04/01/2025 13:10 ET Workstation ID: [id number] Transcribed By: Self Edit Transcribed Date: 04/01/2025 [...] Signed Date: 04/01/2025 13:10 ET Workstation ID: [id number] Transcribed By: Self Edit Transcribed Date: 04/01/2025 13:00 ET us Audie Archer MD IMG NM PROCEDURES Final Result from Last 3 Months Insurance [place] [address] Care Teams Thermal Cutter Helper Relationship Specialty Start Date End Date Enrike Coronado [address] [place] [address] PCP - General Internal Medicine 11/07/19
--- OUTSIDE RECORDS SUMMARY | 2025-05-29 11:00 | XMS_ITS | Encounter Summary ---
Author Organization [employer] Address 75 [facility] 7t [place] [address] Care Team Providers Care Grants Manager Name Role Phone Enrike Coronado MD Primary Care Prov ider Reason for Visit * Reason Onset Date Comments CT scan order 09/29/2024 Encounter Details Date Type Department Care Team (Late st Contact Info) Description 09/29/2024 Telephone [facility] MEDICINE [address] [place] [address] Enrike Cornoado MD [address] [place] [address] [address] scan order Social History Tobacco Use [...] - 09/29/2024 11:43 AM EST Tc from [facility] with [facility] informing referral that was sent over for imaging has to say CT abdomen w contrast only documented in this encounter Plan of Treatment Upcoming Encounters Date Type Department Care Team (Late st Contact Info) Description 06/25/2025 11:15 AM EST Office Visit [facility] CHC MED & PEDS [address] [place] [address] Enrike Coronado MD [address] [place] [address] documented as of this encounter Visit Diagnoses Not on filedocumented in this encounter Additional Health Concerns Assessment Noted Time PHQ-9 Depression Total Score: 2 05/29/20 11:39 AM EDT documented as of this encounter Care Teams Grants Manager Relationship Specialty Start Date End Date Enrike Coronado MD [address] [place] [address] PCP - General Internal Medicine 09/23/19 documented as of this encounter
--- OUTSIDE RECORDS SUMMARY | 2025-05-29 11:00 | XMS_ITS | Encounter Summary ---
Author Organization [employer] Address [address] [facility] 7 [place] [address] Care Team Providers Care Captain/Check Airman Name Role Phone Enrike Coronado MD Primary Care Prov ider Reason for Visit * Reason Onset Date Comments Request For Order(s) 08/27/2024 Encounter Details Date Type Department Care Team ([facility] st Contact Info) Description 08/27/2024 Telephone [facility] MEDICINE [address] [place] [address] Enrike Coronado MD [address] [place] [address] Request For Order(s) Social History Tobacco Use [...] hours from now 8:27am [facility] -[facility]- [phone] documented in this encounter Plan of Treatment Upcoming Encounters Date Type Department Care Team ([facility] st Contact Info) Description 06/25/2025 11:15 AM EST Office Visit [facility] CHC MED & PEDS [address] [place] [address] Enrike Coronado MD [address] [place] [address] documented as of this encounter Visit Diagnoses Not on filedocumented in this encounter Additional Health Concerns Assessment Noted Time PHQ-9 Depression Total Score: 2 05/29/20 11:39 AM EDT documented as of this encounter Care Teams Captain/Check Airman Relationship Specialty Start Date End Date Enrike Coronado MD [address] [place] [address] PCP - General Internal Medicine 09/23/19 documented as of this encounter
--- OUTSIDE RECORDS SUMMARY | 2025-05-29 11:00 | XMS_ITS | Encounter Summary ---
Author Organization [employer] Address [address] [facility] 7 [place] [address] Care Team Providers Care Scout Leaser Name Role Phone Enrike Coronado MD Primary Care Prov ider Reason for Visit * Reason Onset Date Comments Med Refill 11/21/2022 Encounter Details Date Type Department Care Team (Late st Contact Info) Description 11/21/2022 Telephone [facility] CHC MED & PEDS [address] [place] [address] Enrike Coronado MD [address] [place] [address] Med Refill Social History Tobacco Use Types [...] lisinopril-hydroCHLOROthiazide 20-12.5 MG tablet Please sent to [id number] - [place], [place] - [address] documented in this encounter Plan of Treatment Upcoming Encounters Date Type Department Care Team (Late st Contact Info) Description 06/25/2025 11:15 AM EST Office Visit [facility] MED & PEDS [address] [place] [address] Enrike Coronado MD [address] [place] [address] documented as of this encounter Visit Diagnoses Not on filedocumented in this encounter Care Teams Scout Leaser Relationship Specialty Start Date End Date Enrike Coronado MD [address] [place] [address] PCP - General Internal Medicine 09/23/19 documented as of this encounter
--- OUTSIDE RECORDS SUMMARY | 2025-05-29 11:01 | XMS_ITS | Encounter Summary ---
Author Organization [employer] Address [address] [facility] 7t [place] [address] Care Team Providers Care Data Visualization Developer Name Role Phone Enriek Coronado MD Primary Care Prov ider Encounter Details Date Type Department Care Team (Late st Contact Info) Description 12/09/2024 Orders Only [facility] MEDICINE [address] [place] [address] Enrike Coronado MD [address] [place] [address] Social History Tobacco Use Types Packs/Day Years [...] Description 06/25/2025 11:15 AM EST Office Visit [facility] MED & PEDS [address] [place] [address] Enrike Coronado MD [address] [place] [address] documented as of this encounter Visit Diagnoses Not on filedocumented in this encounter Additional Health Concerns Assessment Noted Time PHQ-9 Depression Total Score: 2 05/29/20 24 11:39 AM EDT documented as of this encounter Care Teams Data Visualization Developer Relationship Specialty Start Date End Date Enrike Coronado MD [address] [place] [address] PCP - General Internal Medicine 09/23/19 documented as of this encounter
--- OUTSIDE RECORDS SUMMARY | 2025-05-29 11:01 | XMS_ITS | Encounter Summary ---
Author Organization [employer] Address [address] [facility] [address] [place] [address] Care Team Providers Care Library Clerical Assistant Name Role Phone Enrike Coronado MD Primary Care Prov ider Encounter Details Date Type Department Care Team ([facility] Contact Info) Description 07/26/2022 Orders Only [facility] MEDICINE [address] [place] [address] Enrike Coronado MD [address] [place] [address] Iron deficiency (Primary Dx) Social History Tobacco [...] Upcoming Encounters Date Type Department Care Team ([facility] Contact Info) Description 06/25/2025 11:15 AM EST Office Visit [facility] CHC MED & PEDS [address] [place] [address] Enrike Coronado MD [address] [place] [address] documented as of this encounter Visit Diagnoses Diagnosis Iron deficiency- Primary Disorders of iron metabolism documented in this encounter Care Teams Library Clerical Assistant Relationship Specialty Start Date End Date Enrike Coronado MD [address] [place] [address] PCP - General Internal Medicine 09/23/19 documented as of this encounter
--- OUTSIDE RECORDS SUMMARY | 2025-05-29 11:01 | XMS_ITS | Clinical Summary ---
Author Organization [employer] Address [address] [facility] [address] [place] [address] Care Team Providers Care Fuel Tank Sealer And Tester Name Role Phone Enrike Coronado MD Primary Care Prov ider Allergies No known active allergies Medications Aspirin Low Dose 81 MG EC tablet Take 81 mg by mouth in the morning. 05/16/2022 Active Blood Glucose Monitoring Suppl ([employer]Touch Verio Reflect) w/Device kit USE TO CHECK [...] THREE TIMES DAILY DIRECTED. 11/22/2021 Active Lancets ([employer]Touch Delica Plus [id number]) misc USE TO CHECK BLOOD SUGAR 3 [...] Provider, Generic External Data 04/02/2025 Orders Only [facility] Information Management [address] [place] [phone] Provider, MD Martínez from Last 3 [...] Description 06/25/2025 11:15 AM EST Office Visit [facility] [address] [place] [address] Enrike Coronado MD [address] [place] [address] Health Maintenance Due Date Last Done Comments [...] PM EDT Narrative 04/28/2025 1:07 PM EDT [place] [address] XRay Report Signed Patient: Parker Muhammad MR#: [id number] 0545 : 1955 Acct:[id number] Age/Sex: 70 / M ADM Date: 04/28/25 Loc: [facility] Attending Dr: Audie Archer MD Ordering Physician: Russel Oh MD Date of Service: 04/28/25 Procedure(s): XR chest 1V Accession Number(s): [id number] cc: Enrike Coronado MD; Russel Oh MD [...] 04/28/25 1305 DD/ 1236 TD/TT: 04/28/25 1253 Cinder Pit Crane Operator: Procedure Note Donotuseinterpreter, Image - 04/28/[address] [address] XRay Report Signed Patient: Parker Muhammad DMR#: [id number] 0545 : 4Acct:[id number] Age/Sex: 70 / MADM Date: 04/28/25 Loc: [facility] Attending Dr: Audie Archer MD Ordering Physician: Russel Oh MD Date of Service: 04/28/25 Procedure(s): XR chest 1V Accession Number(s): [id number] cc: Enrike Coronado MD; Russel Oh MD [...] 04/28/25 1305 DD/ 1236 TD/TT: 04/28/25 1253 Cinder Pit Crane Operator: [facility] External Provider IMG XR PROCEDURES Final Result * Gross and Microscopic Level 4 (04/28/2025 11:04 AM EDT) 04/28/2025 11:0 4 AM EDT 04/28/2025 12:39 PM EDT Narrative [facility] - 05/13/2025 9:55 AM EDT ----- ------- Name: Parker Muhammad Age/Sex: 70/M : 1955 Unit#: [id number] Attend Dr: Audie Archer MD Re04/28/25 Status: [facility] Location: [facility] Disch: ----- ------- SPEC : [id number] RECD: 04/28/25-1238 STATUS: SCOTT ESCOBAR NUM: [id number] INGA: 04/28/25-110 [facility] DR: Russel Oh MD ENTERED: 04/28/25-1249 SP TYPE: Surgical OTHR DR: Enrike Coronado MD, Andrey MD ORDERED: Gross Micro L4/2, Synaptophysin, IHC/5, CK7, CK20, p40, TTF-1 COMMENTS: Block A sent to [facility] for xT Solid Tumor/PD-L1 on 05/01/25. Addendum Addendum 2 Entered: 05/13/[address] [facility] report for Next Generation Sequencing with the following results: - Genomic variants: NFE2L2, SPEN, FBXW7, TP53, LRP18 - Tumor Mutational burden: 86th percentile - Microsatellite instability Status: Stable See report in its entirety in the EMR - Reports/Pathology section as a scanned report (camera icon). If appropriate, a copy has also been sent to the ordering provider's office. Addendum Signed (signature on file) Temitope Griffith MD 05/13/25 0955 ----- ------- Addendum 1 Entered: 05/07/[address] [facility] report for PD-L1 with the following results: - PD-L1, tumor proportion score (TPS): 25% - Combined Positive Score (CPS): 25 See report in its entirety in the EMR - Reports/Pathology section as a scanned report (camera icon). If appropriate, a copy has also been sent to the ordering provider's office. Addendum Signed (signature on file)_Grisel Griffith MD 05/07/25 0958 ----- ------- Diagnosis A. Lung, left upper/apical nodule, core biopsy: Squamous cell carcinoma, moderately differentiated. B. Lung, left upper/apical nodule, core biopsy: Pleural scar with reactive changes; negative for malignancy. CONTINUED ON NEXT PAGE ----- ------- Name: Parker Muhammad Age/Sex: 70/M : 1955 Unit#: [id number] Attend Dr: Audie Archer MD Re04/28/25 Status: [facility] Location: [facility] Disch: ----- ------- SPEC : [id number] RECD: 04/28/25-1239 STATUS: SCOTT ESCOBAR NUM: [id number] INGA: 04/28/25-1104 [facility] DR: Russel Oh MD ENTERED: 04/28/25-1249 SP TYPE: Surgical OTHR DR: Enrike Coronado MD, Andrey MD ORDERED: Gross Micro L4/2, Synaptophysin, IHC/5, CK7, CK20, p40, TTF-1 COMMENTS: Block A sent to [facility] for xT Solid Tumor/PD-L1 on 05/01/25. Diagnosis (Continued) COMMENT: The immunohistochemical stain profile supports the [...] 2 pieces in cassette B1 and 3 pieces in cassette B2. ([facility]) This case was reviewed intradepartmentally. Special stains ordered and performed: Immunostains for p40, TTF, CK7, CK20 and synaptophysin on A1. CONTINUED ON NEXT PAGE ----- ------- Name: JbParker Seun Age/Sex: 70/M : 1955 Unit#: [id number] Attend Dr: Audie Archer MD Re04/28/25 Status: [facility] Location: [facility] Disch: ----- ------- SPEC : [id number] RECD: 04/28/25-1238 STATUS: SCOTT ESCOBAR NUM: [id number] INGA: 04/28/25-[address]: Russel Oh MD ENTERED: 04/28/25-124 SP TYPE: Surgical OTHR DR: Enrike Coronado MD, Andrey MD ORDERED: Gross Micro L4/2, Synaptophysin, IHC/5, CK7, CK20, p40, TTF-1 COMMENTS: Block A sent to [facility] for xT Solid Tumor/PD-L1 on 05/01/25. IHC S/NG Disclaimer NOTE: Unless otherwise stated, all tissue is formalin-fixed and paraffin-embedded. Some or all of the immunohistochemical tests reported herein may have been developed and their performance characteristics determined by [facility]. They have not been cleared or approved by the U.S. Food and Drug Administration (FDA). However, the FDA has determined that such clearance or approval is not necessary. This laboratory is certified under the Clinical Laboratory Improvement Amendments of 1988 (CLIA) as qualified to perform high complexity clinical laboratory testing. Copies To: Enrike Coronado MD [address] [phone] Russel Oh MD [address] [place] [address] [phone] Audie Archer MD [facility] [address] [place] [phone] ----- ------- Signed (signature on file) Temitope Griffith MD 05/01/25 0819 ----- ------- END OF REPORT us Generic External Data Provider LAB CYTOLOGY CATALINAClary MARINELLI Final Result Performing Organization Address City/State/[facility] Co de Phone Number [facility] [address] [place] [phone] * CT Biopsy Lung Left (04/28/2025 10:36 AM EDT) Anatomical Region Laterality Modality Computed Tomogra phy 04/28/2025 10:3 6 AM EDT Narrative 04/28/2025 2:10 PM EDT [address] [address] [address] Scan Report Signed Patient: Parker Muhammad MR#: [id number] 0545 : 1955 Acct:[id number] Age/Sex: 70 / M ADM Date: 04/28/25 Loc: [facility] Attending Dr: Audie Archer MD Ordering Physician: Audie Archer MD Date of Service: 04/28/25 Procedure(s): CT biopsy lung LT Accession Number(s): [id number] cc: Enrike Coronado MD; Audie Archer MD Report Number: [id number]: Total DLP = 232.00 mGy-cm Reason for [...] 04/28/25 1408 DD/ 1036 TD/TT: 04/28/25 1138 Cinder Pit Crane Operator: [facility] Procedure Note Donotuseinterpreter, Image - 04/28/[address] [address] [address] Scan Report Signed Patient: Parker Muhammad [facility]#: [id number] 0545 : 4Acct:[id number] Age/Sex: 70 / MADM Date: 04/28/25 Loc: [facility] Attending Dr: Audie Archer MD Ordering Physician: Audie Archer MD Date of Service: 04/28/25 Procedure(s): CT biopsy lung LT Accession Number(s): [id number] cc: Enrike Coronado MD; Audie Archer MD Report Number: [id number]: Total DLP = 232.00 mGy-cm Reason for [...] hour after the procedure. Electronically signed by: Rusesl Oh MD 04/28/2025 02:08 PM EDT Dictated By: Russel Oh MD Signed By: <Electronically signed by Russel Oh MD in OV> 04/28/25 1408 DD/ 1036 TD/TT: 04/28/25 1138 Cinder Pit Crane Operator: VISHAL [facility] External Provider IMG CT PROCEDURES Final Result * (ABNORMAL) CBC auto differential (04/28/2025 9:28 AM EDT) White Blood Count 9.1 4.8 - 10.8 X10*3/uL [facility] Red Blood Count 3.53(L) 4.60 - 5.80 X10*6/uL [facility] Hemoglobin 10.7(L) 14.0 - 18.0 g/dl [facility] Hematocrit 33.2(L) 42.0 - 52.0 % [facility] Mean Corpuscular Volume 94.1 80.0 - 98.0 fL [facility] Mean Corpuscular Hemoglobin 30.3 27.0 - 33.0 pg [facility] Mean Corpuscular HGB Conc 32.2 31.0 - 36.0 g/dl [facility] Red Cell Distribution Width 16.3(H) 11.0 - 16.0 % [facility] Platelet Count 340 160 - 400 X10*3/uL [facility] Mean Platelet Volume 10.7 9.4 - 12.4 fL [facility] Neutrophils Percent Auto 68.8 45 - 73 % [facility] Imm Gran Pct Auto 0.3 0.0 - 0.4 % [facility] Lymphocytes Percent Auto 17.5(L) 20 - 40 % [facility] Monocytes Percent Auto 10.5 2 - 11 % [facility] Eosinophils Percent Auto 2.5 0 - 4 % [facility] Basophils Percent Auto 0.4 0 - 2 % [facility] NRBC Pct Auto 0.0 0.0 - 0.2 /100WBC [facility] Neutrophils Absolute Auto 6.2 2.0 - 8.3 x10*3/uL [facility] Imm Gran Abs Auto 0.03 0.00 - 0.03 X10*3/uL [facility] Lymphocytes Absolute Auto 1.6 1.2 - 4.9 X10*3/uL [facility] Monocytes Absolute Auto 1.0 0.1 - 1.2 X10*3/uL [facility] Eosinophils Absolute Auto 0.2 0.0 - 0.4 X10*3/uL [facility] Basophils Absolute Auto 0.0 0.0 - 0.2 X10*3/uL [facility] NRBC Abs Auto 0.000 0.0 - 0.012 X10*3/uL [facility] 04/28/2025 9:28 AM EDT 04/28/2025 9:30 AM EDT us Generic External Data Provider LAB BLOOD ORDERAB LES Final Result Performing Organization Address [facility] Co de Phone Number [facility] [address] [place] [phone] * Prothrombin Time-INR (04/28/2025 9:28 AM EDT) Prothrombin Time 11.1 10.9 - 12.4 SEC [facility] INTERNATIONAL NORM RATIO 1.0 0.9 - 1.1 [facility] Comment:INTERNATIONAL NORMAL IZED RATIO (INR) [...] ORDERAB LES Final Result Performing Organization Address [facility] Co de Phone Number [facility] [address] [place] [phone] * (ABNORMAL) Basic Metabolic Panel (04/28/2025 9:28 AM EDT) Sodium 141 135 - 145 mmol/L [facility] Potassium 3.9 3.3 - 5.1 mmol/L [facility] Chloride 108 96 - 108 mmol/L [facility] Carbon Dioxide 27 22 - 29 mmol/L [facility] Anion Gap 10(L) 12 - 20 [facility] Urea Nitrogen (BUN) 15 9 - 16 mg/dL [facility] Creatinine, Serum 1.28 0.5 - 1.4 mg/dL [facility] Creatinine Clr Calc Pharmacy 56.3 [facility] Comment:eGFR (calculated fro m the MDRD study equation) and eCrCl(calculated from the Cockcroft-Gault equation) are based ondifferent parameters and may not yield comparable results.If eCrCl result is absurd, please check patient'sheight/weight. Estimated Glomerular Filt Rate 55 [facility] Comment:Chronic Kidney Disea se: Estimated GFR < 60 mL/min/1.88o7Ajugcz Kidney Disease: Estimated GFR < 15 mL/min/1.73m2 Glucose 89 60 - 115 mg/dL [facility] Calcium 8.9 8.4 - 10.2 mg/dL [facility] 04/28/2025 9:28 AM EDT 04/28/2025 9:30 AM EDT us Generic External Data Provider LAB BLOOD ORDERAB LES Final Result [facility] [address] [place] [phone] * PET/CT Bone Skull Base to Mid Thigh (04/01/2025 2:24 PM EDT) Anatomical Region Laterality Modality Body Computed Tomogra phy us Historical Provider MD LYN CT PROCEDURES Final R esult * Hemoglobin A1c (12/15/2024 10:52 AM EDT) Hemoglobin A1c 4.9 <6.0 % [facility] Comment:Hemoglobin A1C Refer ence Range Adults: 4.8 - 6.0 % Non diabetic: < 6.0 % Goal: < 7.0 %Additional Action Suggested: > 8.0 %Note: Hemoglobin A1c results are invalid for patients with abnormal amounts of HbF. Blood transfusions may impact the HbA1c concentration in the patient sample. Estimated Average Glucose 94 mg/dL [facility] Comment:eAG = Estimated ave rage glucose which is %A1C expressed asaverage glucose, using the formula of the V5M-CjyluxvAmevfkn Glucose study (ADAG), Diabetes Care, Vol.31,#8,Mar. 2007 Blood Venous blood specimen / Unknown 12/15/2024 10:52 AM EDT 12/15/2024 2:10 PM EDT us Enrike Peguero MD LAB BLOOD ORDERABL ES Final Result [facility] [address] [place] [phone] * (ABNORMAL) Lipid Panel, Standard (12/15/2024 10:52 AM EDT) Triglycerides 66 <150 mg/dL [facility] Comment:Desirable Triglyceri de: less than 150 mg/dLBorderline High Triglyceride 150-199 mg/dLHigh Triglyceride: 200-499 mg/dLVery High Triglyceride: greater than or equal to 5OO mg/dL Cholesterol 85 <200 mg/dL [facility] Comment:Desirable Cholestero l: less than 200 mg/dLBorderline High Cholesterol: 200-239 mg/dLHigh Cholesterol: greater than 239 mg/dL LDL Cholesterol Calculated 51 <100 mg/dL [facility] Comment:Desirable LDL: less than 100 mg/dLNear Optimal/Above Optimal LDL: 110- 129 mg/dLBorderline High LDL: 130-159 mg/dLHigh LDL: 160-189 mg/dLVery High LDL: greater than or equal to 190 mg/dL HDL Cholesterol 21(L) >40 mg/dL [facility] Comment:Desirable HDL: great er than 40 mg/dL Note: This HDL assay may give artificially low results in patients with liver disease. Blood Venous blood specimen / Unknown 12/15/2024 10:52 AM EDT 12/15/2024 2:10 PM EDT Enrike Peguero MD LAB BLOOD ORDERABL ES Final Result Performing Organization Address City/[facility]/ZIP Co de Phone Number [facility] [address] [place] [phone] * ALBUMIN, RANDOM URINE W/CREATININE (11/23/2021 [...] ORDERABL ES Final Result Performing Organization Address City/[facility]/ZIP Co de Phone Number [facility] [address] from Last 3 Months or Most Recently Relevant to Health Maintenance Insurance [facility] MEDICARE REPLACEMENT Care Teams Fuel Tank Sealer And Tester Relationship Specialty Start Date End Date Enrike Coronado MD [address] [place] [phone] PCP - General Internal Medicine 09/23/19
== END 2025-05-29 09:48 | disposition home or self-care (01) ==
LOC: HO.RESP 09:47
PROVIDERS: PCP Internal Medicine; Visit Provider Internal Medicine Pulmonary Disease
DX: F17.210 Nicotine dependence, cigarettes, uncomplicated (principal)
CPT/HCPCS: 94060; 94640; 94727; 94729

== ENCOUNTER → 2025-05-29 10:11 | Outpatient (BNV) | payer MEDICARE, SELFPAY | PROVIDERS: PCP Internal Medicine; Visit Provider Hospitalist | DX: F17.210 Nicotine dependence, cigarettes, uncomplicated (principal) | CPT/HCPCS: 94060; 94727; 94729 ==

== ENCOUNTER 2025-06-23 10:59 | Outpatient (AMB) | payer MEDICARE, SELFPAY ==
[2025-06-23 11:13] VITALS: BP 130/58; PULSE 73; O2SAT 99; BMI 26.1
--- NOTE | 2025-06-23 11:13 | MHC.OFFVIS ---
Vital Signs 06/23/25 11:13 Height 5 ft 11 in Weight 187 lb BMI 26.1 BP 130/58 L Blood Pressure Location Rt brachial Position Sitting Pulse 73 Pulse Source Pulse Oximeter Pulse Oximetry (%) 99 Oxygen Delivery Method Room Air Intake Visit Reasons: Pulmonary nodule Allergies No Known Allergies Allergy (Verified 05/04/25 10:54) HPI HPI Pulmonary nodule: Details: 69-year-old gentleman, active 30+ pack-year smoker referred from lung cancer screening program for concern of possible early pancoast tumor on screening CT chest. Patient does complain of intermittent dyspnea on exertion. He is not currently using a bronchodilator therapy. His employed with no exposure to industrial dusts. Patient denies family history of lung disease. PET scan that showed 1.8 cm FDG avid left apical/paraspinal nodule that was biopsied and showed squamous carcinoma. Patient was evaluated by Oncology and is now planned for resection at [facility] on 07/22/2025. He was not able to afford Combivent. [facility] Medical History (Updated 05/06/25 @ 15:14 by Desirae Johnson MD) Hepatitis C, chronic Hypertension Hyperlipidemia Diabetes GERD (gastroesophageal reflux disease) Nicotine dependence, cigarettes, uncomplicated Surgical History History of bronchoscopy Social History Household Members: Family Housing: Other Are you a primary memory care program resident to a significant other at home: No Do you presently have visiting nurse or other home services: No Patient Tobacco Use Status: Current everyday Tobacco user Tobacco use type: Cigarette Cigarettes Per Day: 11 Years Smoked: (onset 15yo, 1/2ppd x 54yrs, 27pyh) service: No Current occupational status: employed and retired Review of Systems Const Denies daytime sleepiness, Denies excessive sweating, Denies fatigue, Denies fever(s), Denies lethargy, Denies malaise, Denies night sweats, Denies snoring and Denies weight loss Eyes Denies blurry vision and Denies itchy eyes ENT Denies nasal congestion, Denies post nasal drip, Denies sinus pain, Denies sinus pressure and Denies other ( Thrush) Card Denies chest pain, Denies pedal edema, Denies dyspnea, Denies orthopnea and Denies paroxysmal nocturnal dyspnea Resp Denies cough, Denies hemoptysis, Denies excessive phlegm production, Denies dyspnea, Denies snoring and Denies wheezing GI Denies abdominal pain and Denies heartburn Musc Denies myalgias, Denies arthralgias and Denies joint swelling Skin/Breast Denies rash Neuro Denies memory loss and Denies seizure-like activity Psych Denies abnormal sleep pattern, Denies anxiety and Denies memory loss Endo Denies excessive sweating, Denies fatigue and Denies heat intolerance Regan/Lymph Denies easy bruising Aller/Immun Denies itchy eyes, Denies seasonal rhinorrhea and Denies wheezing Physical Exam Vital Signs: Last Vital Signs Pulse 73 06/23/25 11:13 BP 130/58 L 06/23/25 11:13 Pulse Ox 99 06/23/25 11:13 Oxygen Delivery Method Room Air 06/23/25 11:13 BMI result Body Mass Index 26.1 Const General: no acute distress and alert Nutritional Appearance: not obese Orientation/consciousness: Other orientation findings ( oriented) HEENT Head: Yes atraumatic Eyes General: appearance normal, both eyes and all related structures Sclerae: sclerae normal EOM: EOMs intact bilaterally Neck Neck: Yes supple Lymphatic: no lymphadenopathy noted Resp Effort & Inspection: normal respiratory effort and no use of accessory muscles Auscultation: clear to auscultation bilaterally Cardio Rate: regular rate Rhythm: regular rhythm Heart sounds: no gallops, no murmurs and no rubs Skin General skin exam: other ( warm) Extrem General: No clubbing, No cyanosis and No edema Assessment & Plan Assessment & Plan (1) COPD (chronic obstructive pulmonary disease): Code(s): J44.9 - Chronic obstructive pulmonary disease, unspecified Category: Medical Plan: Patient was not able to afford Combivent. Continue albuterol MDI. Essentially asymptomatic. (2) Squamous cell carcinoma of left lung: Code(s): C34.92 - Malignant neoplasm of unspecified part of left bronchus or lung Category: Medical Plan: Now scheduled for resection at [facility] on 07/22/2025. (3) Nicotine dependence, cigarettes, uncomplicated: Code(s): F17.210 - Nicotine dependence, cigarettes, uncomplicated Category: Medical Plan: Is interested in quitting, will start on nicotine replacement therapy. Medications: New albuterol sulfate 90 mcg/actuation (Ventolin HFA) 2 puffs inhalation Q4-6H PRN 1 ea 3RF shortness of breath or wheezing nicotine apply 1-21 mg NICOTINE PATCH daily for 28 days; follow with 1-14 mg PATCH daily for 14 days, then 1-7mg PATCH daily for 14 days transdermal 56 patches 0RF Discontinued ipratropium-albuterol 20-100 mcg/actuation (Combivent Respimat) Discontinued Reason: Doctor's Order 1 puff inhalation Q6H 4 grams 0RF J44.9 - Chronic obstructive pulmonary disease, unspecified Coding Level of Care Code Est Pt Level 4 (39068) Complex EM visit Add On G2211 Diagnoses COPD (chronic obstructive pulmonary disease) J44.9 Squamous cell carcinoma of left lung C34.92 Nicotine dependence, cigarettes, uncomplicated F17.210
== END 2025-06-23 11:52 | disposition home or self-care (01) ==
PROVIDERS: PCP Internal Medicine; Visit Provider Internal Medicine Pulmonary Disease
DX: J44.9 Chronic obstructive pulmonary disease, unspecified (principal); C34.92 Malignant neoplasm of unspecified part of left bronchus or lung; F17.210 Nicotine dependence, cigarettes, uncomplicated
CPT/HCPCS: 99214; G2211

== ENCOUNTER → 2025-06-23 10:59 | Outpatient (BNVA) | payer MEDICARE, SELFPAY | PROVIDERS: PCP Internal Medicine; Visit Provider Internal Medicine Pulmonary Disease | DX: J44.9 Chronic obstructive pulmonary disease, unspecified (principal); C34.92 Malignant neoplasm of unspecified part of left bronchus or lung; F17.210 Nicotine dependence, cigarettes, uncomplicated | CPT/HCPCS: 99212 ==